=== PATIENT | male | born 1980 | race Caucasian/White ===

== ENCOUNTER 2022-06-05 13:41 | Emergency (ER) | payer MEDICAID, SELFPAY ==
--- NOTE | ~2022-06-05 | XR_ITS ---
EXAMINATION: XR KNEE-BILATERAL CLINICAL INFORMATION: Bilateral knee pain. COMPARISON: None TECHNIQUE: 2 views each of both knees were obtained. FINDINGS: Right knee: The bony alignments are intact. Decreased joint space, subchondral sclerosis, osteophyte formation, consistent with medial and lateral compartmental moderate osteoarthrosis. The patellofemoral compartment appears intact and is unremarkable. Left knee: Similar to the right site, moderate medial and lateral compartmental osteoarthrosis is seen. Patellofemoral compartment shows minimal osteoarthrosis and small suprapatellar effusion. XR/XR knee LT 2V IMPRESSION: 1. Small left-sided suprapatellar effusion and tricompartmental left-sided osteoarthrosis. 2. The right knee shows medial and lateral compartmental osteoarthrosis and no evidence of any effusion.
--- NOTE | ~2022-06-05 | XR_ITS ---
EXAMINATION: XR KNEE-BILATERAL CLINICAL INFORMATION: Bilateral knee pain. COMPARISON: None TECHNIQUE: 2 views each of both knees were obtained. FINDINGS: Right knee: The bony alignments are intact. Decreased joint space, subchondral sclerosis, osteophyte formation, consistent with medial and lateral compartmental moderate osteoarthrosis. The patellofemoral compartment appears intact and is unremarkable. Left knee: Similar to the right site, moderate medial and lateral compartmental osteoarthrosis is seen. Patellofemoral compartment shows minimal osteoarthrosis and small suprapatellar effusion. XR/XR knee RT 2V IMPRESSION: 1. Small left-sided suprapatellar effusion and tricompartmental left-sided osteoarthrosis. 2. The right knee shows medial and lateral compartmental osteoarthrosis and no evidence of any effusion.
[2022-06-05 13:57] VITALS: BP 124/68; PULSE 85; RESP 18; TEMP 36.6; O2SAT 94; BMI 46.3
--- NOTE | 2022-06-05 18:08 | ED_ITS ---
HPI - General Adult General Chief complaint: General Medical Stated complaint: knee pain Time Seen by Provider: 06/05/22 18:08 Source: patient Mode of arrival: ambulatory History of Present Illness HPI narrative: 42-year-old male with no significant past medical history presenting to the ED complaining of acute on chronic bilateral knee pain x years worsening over the past few weeks. Reports feels like it needs arm grinding, worse with movement, ambulating and any activity. Denies known injury/trauma or fall. Reports intermittent paresthesias. Denies fever, chills, weakness Onset (ago): year(s) Related Data Previous Rx's Medication Instructions Recorded acetaminophen 500 mg tablet 500 mg PO Q6H PRN fever or pain 06/05/22 (Tylenol Extra Strength) #14 tabs naproxen 500 mg tablet 500 mg PO BID PRN pain 10 days #20 06/05/22 tabs Allergies Allergy/AdvReac Type Severity Reaction Status Date / Time No Known Allergies Allergy Verified 06/05/22 13:56 Review of Systems Review of Systems: Constitutional: No Fever, No Chills ENT/Mouth: No Ear Pain, No Nasal Congestion, No sore throat, No Rhinorrhea, No Swallowing Difficulty Cardiovascular: No Chest Pain, No SOB Respiratory: No Cough, No Sputum, No Wheezing Gastrointestinal: No Nausea, No Vomiting, No Diarrhea, No Constipation, No Abdominal pain Genitourinary: No Dysuria, No Urinary Frequency, No Urgency, No Flank Pain Musculoskeletal: + joint pain, No Myalgias, + Joint Swelling Skin: No Skin Lesions, No rash Neuro: No Weakness, No Numbness, + Paresthesias Yes all other systems are reviewed and are negative Constitutional: Constitutional: Reports as per [facility] Past Medical History Attestation statement: The following information was validated with the patient. Physical Exam ED Vital Signs: Vital Signs - 24 hr 06/05/22 13:57 Temperature 97.8 F Pulse Rate 85 Respiratory Rate 18 Blood Pressure 124/68 Pulse Oximetry 94 Oxygen Delivery Method Room Air BMI result Body Mass Index 46.3 Const General: cooperative, healthy appearing and no acute distress Orientation/consciousness: patient oriented x3 Limitations: no limitations HENMT Head: Yes normal to inspection and Yes atraumatic Ears: hearing grossly normal bilaterally General nose exam: Normal external nose present Face and sinus: Yes normal facial exam Eyes General: appearance normal, both eyes and all related structures EOM: EOMs intact bilaterally Neck Neck: Yes normal visual inspection and Yes no meningeal signs Resp Effort & Inspection: normal respiratory effort and no respiratory distress Cardio Rate: regular rate Heart sounds: S1 normal heart sound present and S2 normal heart sound present Peripheral pulses: dorsalis pedis present Skin Rashes: no rashes Wounds: no wounds Neuro Other: Ambulating with slow steady gait General: patient oriented x3, gait normal, tone normal and no meningeal signs Gait exam (Neuro): Normal gait present Extrem Other: Bilateral knees with mild swelling > left. Diffusely tender to palpation. Decreased flexion bilaterally secondary to pain. Neurovascular intact distally. No overlying erythema/warmth or streaking. Course Course Course Narrative: XR knee RT 2V/XR knee LT 2V IMPRESSION: ? 1. Small left-sided suprapatellar effusion and tricompartmental left-sided osteoarthrosis. 2. The right knee shows medial and lateral compartmental osteoarthrosis and no evidence of any effusion. > Alexander wrap applied for comfort and stability. Results discussed with patient including worrisome signs and symptoms and strict return precautions, and when to return to the emergency department. They verbalized understanding and feel safe for discharge at this time. Medical Decision Making MDM Narrative Medical decision making narrative: 42-year-old male with no significant past medical history presenting to the ED complaining of acute on chronic bilateral knee pain x years worsening over the past few weeks. On exam vital signs stable, NAD, nontoxic appearing, physical exam as above. Concern for arthritis for low suspicion for fracture, septic joint/arthritis, no evidence of cellulitis Plan: X-rays Medical Records Medical records reviewed: Yes I reviewed the patient's medical records. Lab Data Lab results reviewed: Yes I reviewed the patient's lab results. Discharge Plan Discharge Clinical Impression: Osteoarthritis Patient Disposition: Home, Self-Care Instructions: Osteoarthritis (ED) Additional Instructions: Your x-ray show a small left-sided suprapatellar effusion and osteoarthritis bilaterally. Wear Alexander wraps for stability/compression and comfort. Naproxen as an anti-inflammatory/pain medication, take with food. In addition take Tylenol. You need to follow-up with orthopedics. Ice and elevate. Rest Prescriptions: New acetaminophen [Tylenol Extra Strength] 500 mg tablet 500 mg PO Q6H PRN (Reason: fever or pain) Qty: 14 0RF naproxen 500 mg tablet 500 mg PO BID PRN (Reason: pain) 10 Days Qty: 20 0RF Referrals: Red Cano MD [Physician] -
[2022-06-05] MEDS: Ketorolac Tromethamine 30 MG/ML VIAL IM (18:44)
== END 2022-06-05 18:50 | disposition home or self-care (01) ==
PROVIDERS: Emergency Provider Emergency Medicine; PCP Physician Assistant
DX: M17.0 Bilateral primary osteoarthritis of knee (principal); M25.462 Effusion, left knee
CPT/HCPCS: 73560; 96372; 99283; 99284; J1885

== ENCOUNTER 2022-07-07 12:50 | Outpatient (REF) | payer MEDICAID, SELFPAY ==
--- NOTE | ~2022-07-07 | XR_ITS ---
EXAMINATION: XR KNEE AP STANDING. XR KNEE, BILATERAL CLINICAL INFORMATION: Bilateral knee pain COMPARISON: 06/05/2022 TECHNIQUE: AP bilateral standing view of the knees was obtained. [place] views of each knee. FINDINGS: Tricompartmental osteoarthritis of both knees, most prominent in the medial compartments with marginal osteophytes and slight genu varus bilaterally. No acute abnormalities. No change. XR/XR knee standing BI IMPRESSION: Mild to moderate tricompartmental osteoarthritis. No change.
--- NOTE | ~2022-07-07 | XR_ITS ---
EXAMINATION: XR KNEE AP STANDING. XR KNEE, BILATERAL CLINICAL INFORMATION: Bilateral knee pain COMPARISON: 06/05/2022 TECHNIQUE: AP bilateral standing view of the knees was obtained. [place] views of each knee. FINDINGS: Tricompartmental osteoarthritis of both knees, most prominent in the medial compartments with marginal osteophytes and slight genu varus bilaterally. No acute abnormalities. No change. XR/XR knee RT 1V IMPRESSION: Mild to moderate tricompartmental osteoarthritis. No change.
--- NOTE | ~2022-07-07 | XR_ITS ---
EXAMINATION: XR KNEE AP STANDING. XR KNEE, BILATERAL CLINICAL INFORMATION: Bilateral knee pain COMPARISON: 06/05/2022 TECHNIQUE: AP bilateral standing view of the knees was obtained. [place] views of each knee. FINDINGS: Tricompartmental osteoarthritis of both knees, most prominent in the medial compartments with marginal osteophytes and slight genu varus bilaterally. No acute abnormalities. No change. XR/XR knee LT 1V IMPRESSION: Mild to moderate tricompartmental osteoarthritis. No change.
== END 2022-07-07 12:51 | disposition home or self-care (01) ==
LOC: HO.HOSX 12:50
PROVIDERS: Visit Provider Physician Assistant
DX: M17.0 Bilateral primary osteoarthritis of knee (principal)
CPT/HCPCS: 20610; 73560; 73565; 99202; J1020

== ENCOUNTER 2022-07-08 12:08 | Outpatient (REF) | payer MEDICAID, SELFPAY ==
--- NOTE | ~2022-07-08 | XR_ITS ---
EXAMINATION: XR SHOULDER, RIGHT XR SHOULDER, LEFT CLINICAL INFORMATION: M77.8 - Other enthesopathies, not elsewhere classified COMPARISON: None TECHNIQUE: Right shoulder is imaged in 4 views. Left shoulder is imaged in 4 views. There are a total of 8 views. FINDINGS: Right: No fracture, dislocation, destructive process. Glenohumeral joint appears normal. No joint narrowing or erosive change. The acromioclavicular alignment is normal. Borderline degenerative changes acromioclavicular joint. No visible rotator cuff calcifications. Left: No fracture, dislocation, destructive process. Glenohumeral joint appears normal. No joint narrowing or erosive change. The acromioclavicular alignment is normal. Borderline degenerative changes acromioclavicular joint. No visible rotator cuff calcifications. XR/XR shoulder LT min 2V IMPRESSION: -Borderline degenerative changes acromioclavicular joints. -Normal glenohumeral joints. -No visible rotator cuff calcifications.
--- NOTE | ~2022-07-08 | XR_ITS ---
EXAMINATION: XR SHOULDER, RIGHT XR SHOULDER, LEFT CLINICAL INFORMATION: M77.8 - Other enthesopathies, not elsewhere classified COMPARISON: None TECHNIQUE: Right shoulder is imaged in 4 views. Left shoulder is imaged in 4 views. There are a total of 8 views. FINDINGS: Right: No fracture, dislocation, destructive process. Glenohumeral joint appears normal. No joint narrowing or erosive change. The acromioclavicular alignment is normal. Borderline degenerative changes acromioclavicular joint. No visible rotator cuff calcifications. Left: No fracture, dislocation, destructive process. Glenohumeral joint appears normal. No joint narrowing or erosive change. The acromioclavicular alignment is normal. Borderline degenerative changes acromioclavicular joint. No visible rotator cuff calcifications. XR/XR shoulder RT min 2V IMPRESSION: -Borderline degenerative changes acromioclavicular joints. -Normal glenohumeral joints. -No visible rotator cuff calcifications.
[2022-07-08 13:24] LABS: Hematocrit 41.9 % (42.0-52.0); Hemoglobin 14.3 g/dl (14.0-18.0); Mean Corpuscular HGB Conc 34.1 g/dl (31.0-36.0); Mean Corpuscular Hemoglobin 27.8 pg (27.0-33.0); Mean Corpuscular Volume 81.5 fL (80.0-98.0); Mean Platelet Volume 10.5 fL (9.4-12.4); Platelet Count 230 X10*3/uL (160-400); Red Blood Count 5.14 X10*6/uL (4.60-5.80); Red Cell Distribution Width 13.3 % (11.0-16.0); White Blood Count 12.3 X10*3/uL (4.8-10.8)
[2022-07-08 14:07] LABS: Alanine Aminotransferase 18 U/L (0-40); Albumin Level 3.9 g/dL (3.5-5.0); Alkaline Phosphatase 72 U/L (39-117); Anion Gap 13 (12-20); Aspartate Amino Transferase 13 U/L (5-37); Bilirubin Total 0.4 mg/dL (0.0-1.0); Blood Urea Nitrogen 8 mg/dL (9-16); Calcium 9.2 mg/dL (8.4-10.2); Carbon Dioxide 28 mmol/L (22-29); Chloride 102 mmol/L (96-108); Cholesterol 200 mg/dL; Estimated Glomerular Filt Rate > 60; Glucose Fasting 88 mg/dL (60-99); HDL Cholesterol 45 mg/dL; LDL Cholesterol Calculated 132 mg/dl; Potassium 4.3 mmol/L (3.3-5.1); Sodium 139 mmol/L (135-145); Triglycerides 119 mg/dL
[2022-07-08 14:40] LABS: TSH reflex Free T4 0.82 uIU/mL (0.32-4.0)
== END 2022-07-08 12:09 | disposition home or self-care (01) ==
LOC: HO.XRAY 12:08
PROVIDERS: PCP Physician Assistant; Visit Provider Physician Assistant
DX: Z13.29 Encounter for screening for other suspected endocrine disorder (principal); F17.200 Nicotine dependence, unspecified, uncomplicated
CPT/HCPCS: 36415; 73030; 80053; 80061; 84443; 85027

== ENCOUNTER → 2022-10-09 12:54 | Outpatient (BNVA) | payer MEDICAID, SELFPAY | PROVIDERS: PCP Physician Assistant; Visit Provider Physician Assistant | DX: M17.0 Bilateral primary osteoarthritis of knee (principal) | CPT/HCPCS: 20610; 99212; J1040 ==

== ENCOUNTER → 2023-02-20 10:01 | Outpatient (BNVA) | payer MEDICAID, SELFPAY | PROVIDERS: PCP Physician Assistant; Visit Provider Physician Assistant | DX: M17.0 Bilateral primary osteoarthritis of knee (principal) | CPT/HCPCS: 20610; 99212; J1040 ==

== ENCOUNTER → 2023-03-23 13:32 | Outpatient (BNVA) | payer OTHER, SELFPAY | PROVIDERS: PCP Physician Assistant; Visit Provider Anesthesiology | DX: G90.522 Complex regional pain syndrome I of left lower limb (principal); M17.0 Bilateral primary osteoarthritis of knee; G89.4 Chronic pain syndrome | CPT/HCPCS: 99202 ==

== ENCOUNTER 2023-04-07 06:15 | Outpatient (REF) | payer OTHER, SELFPAY ==
--- NOTE | ~2023-04-07 | FL_ITS ---
EXAMINATION: XR FLUOROSCOPY WITH IMAGES CLINICAL INFORMATION: Bilateral primary osteoarthritis of knee. COMPARISON: None available. TECHNIQUE: Fluoroscopy Supervised By: Dr. Ramirez. Fluoroscopy Time: 0.0 minutes. Cumulative Dose: 0.538 mGy. DAP: 0.146 Gycm2. Images: 2. FINDINGS: Lateral image demonstrates needle projecting over the left proximal tibia. FL/FL guidance in treatment room IMPRESSION: Fluoroscopy guidance for pain management procedure
== END 2023-04-07 06:16 | disposition home or self-care (01) ==
LOC: CF 06:15
PROVIDERS: Visit Provider Anesthesiology
DX: M17.0 Bilateral primary osteoarthritis of knee (principal); G89.4 Chronic pain syndrome; G90.522 Complex regional pain syndrome I of left lower limb
CPT/HCPCS: 64450

== ENCOUNTER → 2023-04-09 10:40 | Outpatient (BNVA) | payer OTHER, SELFPAY | PROVIDERS: PCP Physician Assistant; Visit Provider Anesthesiology | DX: G89.4 Chronic pain syndrome (principal); M17.0 Bilateral primary osteoarthritis of knee; G90.522 Complex regional pain syndrome I of left lower limb | CPT/HCPCS: 99212 ==

== ENCOUNTER 2023-04-24 13:20 | Outpatient (REF) | payer OTHER, SELFPAY ==
[2023-04-24 14:28] LABS: Alanine Aminotransferase 29 U/L (0-40); Albumin Level 4.1 g/dL (3.5-5.0); Alkaline Phosphatase 64 U/L (39-117); Anion Gap 13 (12-20); Aspartate Amino Transferase 15 U/L (5-37); Bilirubin Total 0.3 mg/dL (0.0-1.0); Blood Urea Nitrogen 13 mg/dL (9-16); Calcium 9.5 mg/dL (8.4-10.2); Carbon Dioxide 28 mmol/L (22-29); Chloride 105 mmol/L (96-108); Cholesterol 188 mg/dL; Estimated Glomerular Filt Rate > 60; Glucose Fasting 118 mg/dL (60-99); HDL Cholesterol 43 mg/dL; LDL Cholesterol Calculated 87 mg/dl; Potassium 3.9 mmol/L (3.3-5.1); Sodium 142 mmol/L (135-145); Total Protein 7.4 g/dL (6.5-8.0); Triglycerides 294 mg/dL
== END 2023-04-24 13:21 | disposition home or self-care (01) ==
LOC: HO.LAB 13:20
PROVIDERS: PCP Physician Assistant; Visit Provider Physician Assistant
DX: E78.9 Disorder of lipoprotein metabolism, unspecified (principal); Z13.1 Encounter for screening for diabetes mellitus
CPT/HCPCS: 36415; 80053; 80061; 85027

== ENCOUNTER → 2023-05-05 09:22 | Outpatient (REF) | payer OTHER, SELFPAY ==
--- NOTE | 2023-05-05 09:24 | CA_ITS ---
Acquisition Time: 2023-05-05 09:40:35 Total Exercise Time: 00:06:51 Test Indications: CHEST PAIN Medications: ARIPIPRAZOLE CLONAZAPAM LORATADINE VARENICLINE Protocol: NAN Max HR: 150 BPM 85% of Pred: 176 BPM Max BP: 158/068 mmHG Max Work Load: 8.3 METS Exercise stress test exercise 6 min 51 sec of Nan protocol achieivng 85% MPHR, pt jumped off treadmil due to 7/10 chest discomfort, mild SOB, at 2 min 3/10 sharp chest pain, decreased to 2 at 3 min, 1/10 at 4 min, 0/10 5.5 min, 7/10 at 6 min 45 sec, without arrhythmias, with normotensive response to exercise, without EKG changes. Chest pain decreased to 2/10 at 4.5 mins of recovery. Test reviewed with Dr. Marshall. Referred By: Ricky Kern Overread By: Kiet Marshall
== END ==
LOC: HO.CARD 09:22
PROVIDERS: PCP Physician Assistant; Visit Provider Physician Assistant
DX: R07.9 Chest pain, unspecified (principal)
CPT/HCPCS: 93017

== ENCOUNTER → 2023-05-05 09:24 | Outpatient (BNV) | payer OTHER, SELFPAY | PROVIDERS: PCP Physician Assistant; Visit Provider Internal Medicine Cardiovascular Disease | DX: R07.89 Other chest pain (principal); R06.02 Shortness of breath | CPT/HCPCS: 93016; 93018 ==

== ENCOUNTER → 2023-06-02 08:52 | Outpatient (REF) | payer OTHER, SELFPAY | LOC: HO.SL 08:52 | PROVIDERS: PCP Physician Assistant; Visit Provider Physician Assistant | DX: G47.33 Obstructive sleep apnea (adult) (pediatric) (principal) | CPT/HCPCS: 95806 ==

== ENCOUNTER → 2023-06-02 09:00 | Outpatient (BNV) | payer OTHER, SELFPAY | PROVIDERS: PCP Physician Assistant; Visit Provider Internal Medicine | DX: G47.33 Obstructive sleep apnea (adult) (pediatric) (principal) | CPT/HCPCS: 95806 ==

== ENCOUNTER 2023-07-16 14:20 | Outpatient (AMB) | payer OTHER, SELFPAY ==
--- NOTE | 2023-07-16 14:29 | MHC.OFFVIS ---
Intake Vital Signs 07/16/23 14:30 Height 5 ft 10 in Weight 299 lb BMI 42.9 BP 122/60 Blood Pressure Location Lt brachial Position Sitting Pulse 95 Pulse Source Pulse Oximeter Pulse Oximetry (%) 98 Oxygen Delivery Method Room Air Intake Visit Reasons: curly Intake Note: pt is here for sleep study explanation, cpap is ordered at [facility] by pcp, waiting for order to be complete Allergies No Known Allergies Allergy (Verified 07/16/23 15:05) Medication List - Last Reconciled 07/16/23 by Celso Jacome MD acetaminophen (Tylenol Extra Strength) 500 mg PO Q6H 15 days aripiprazole 10 mg PO BEDTIME clonazepam (Klonopin) 1 mg PO BEDTIME compr.stocking,knee,long,x-lrg As directed CPAP (CPAP Machine/Device) Please include ALL SUPPLIES diclofenac sodium 75 mg PO BID PRN loratadine 10 mg PO DAILY PRN nicotine (polacrilex) 2 mg buccal Q2H PRN 15 days Do you need a note to return to daycare/school/sports/work: No HPI curly HPI Details This [age] years gentleman is here for the 1st time, referred for management of his sleep apnea. He has history of morbid obesity for the past many years. Has history of loud snoring and frequent awakenings since about six to eight years ago. 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 His symptoms include loud snoring, frequent respiratory pauses, frequent awakening. And continued daytime sleepiness. He has very little control on his d He smokes one to one and half pack of cigarettes a day. Denies chronic cough or wheezing. He has bipolar disorder and is difficult for him to focus on smoking cessation. Lately he has had painful knees has had. He denies any symptoms of bronchial asthma or COPD. His PCP, Omi Kern , had ordered home-based sleep study which was done on 06/02/2023. As expected the study was grossly abnormal, showing severe obstructive sleep apnea with total sleep time AHI is 60.6, all the sleep was in supine position. He also had associated nocturnal hypoxemia with minimal O2 sat of 59 and O2 sat below 88% for 117 minute, This indicates that he has significant sleep-related hypoventilation. Normally he should have CPAP titration in the sleep lab. But because of urgency of starting him on the treatment, neck felt in has already ordered a CPAP for him. DME provider, Wily , has not processes at the order yet because of lack of some documents which we are going to take care of. [facility] Medical History (Updated 07/16/23 @ 15:21 by Celso Jacome MD) Nocturnal hypoxemia Morbid obesity CURLY (obstructive sleep apnea) Lumbar disc disease Obese Surgical History History of back surgery Family History Paternal Grandmother Mental health disorder Cancer Paternal Uncle Cancer Maternal Uncle Cancer Other Substance use disorder Social History Housing: House Alcohol intake: former Year quit: 2019 Patient Tobacco Use Status: Current everyday Tobacco user Cigarettes Per Day: 10 e-Cigarette/Vaping Use: Never Used service: No Current occupational status: disabled Current occupation: On SSI. Having difficulties with them currently. Current occupational exposures/hazards: No Cognitive needs: No Hearing needs: No Vision needs: No Review of Systems Const All systems reviewed & are unremarkable except as noted in HPI and below Eyes Reports no additional complaints ENT Reports no additional complaints Card Denies chest pain, Denies irregular heart rhythm, Denies leg edema and Denies dyspnea Resp Denies cough, Denies dyspnea and Denies wheezing GI Reports no additional complaints Reports no additional complaints Musc Reports arthralgias (Knees, getting intra-articular steroid injections) Skin/Breast Reports system reviewed and no additional complaints, except as documented Neuro Reports no additional complaints Psych Reports anxiety and Reports other (Being treated for bipolar disorder) Endo Reports no additional complaints Toni/Lymph Reports no additional complaints Aller/Immun Reports no additional complaints and Denies wheezing Physical Exam Vital Signs: Last Vital Signs Pulse 95 07/16/23 14:30 BP 122/60 07/16/23 14:30 Pulse Ox 98 07/16/23 14:30 Oxygen Delivery Method Room Air 07/16/23 14:30 BMI result Body Mass Index 42.9 Const Other: HE IS GROSSLY OBESE, WITH A ROUND FACE, LARGE NECK, AND ALSO HAS PROMINENT RETROGANTHIA OF THE LOWER JAW General: comfortable, no acute distress, alert and awake Orientation/consciousness: patient oriented x3 HEENT Head: Yes normal to inspection General nose exam: No nasal polyps present and No nasal discharge present Face and sinus: Yes sinuses nontender Mouth: oropharynx abnormals (OROPHARYNX IS VERY NARROW AND CROWDED, MALLAMPATI CLASS 4) Teeth and gingiva: other (RETROGANTHIA OF LOWER JAW) Throat: Yes posterior oropharynx normal Eyes General: appearance normal, both eyes and all related structures Neck Neck: Yes normal visual inspection, Yes no lymphadenopathy, Yes trachea midline, Yes no JVD and Yes other (NECK CIRCUMFERENCE 20 IN) Thyroid: Thyroid normal Chest Chest palpation & inspection: normal inspection of the chest, normal palpation of entire chest wall and no tenderness Resp Other: PERCUSSION NOTE HARDLY PERCEPTIBLE BECAUSE. OF THE THICK CHEST WALL BREATH SOUNDS ARE DISTANT. BUT NO CREPITATIONS WHEEZES OR RHONCHI ARE HEARD. Cardio Palpation: PMI not normal (NOT PALPABLE) Rate: regular rate Rhythm: regular rhythm Heart sounds: no gallops and no murmurs Peripheral pulses: Peripheral pulses 2+ throughout GI Palpation (GI): Soft to palpation, nontender, No hepatosplenomegaly present, no masses and Other GI palpation findings present (ABDOMEN IS OBESE AND PROTUBERANT) Auscultation: normal bowel sounds Back/Spine/Pelvis Thoracic/Lumbar Spine: thoracic and lumbar spine normal to inspection Skin General skin exam: no rashes or lesions noted Neuro General: patient oriented x3 and no focal motor deficits Cranial nerves: Yes CN's II-XII intact bilaterally Extrem General: Yes normal to inspection, Yes no clubbing, cyanosis or edema and Yes no calf tenderness Psych Appearance: grossly normal and well kempt Speech and movement: Normal speech and movement present Results Reviewed Results Reviewed: I reviewed the results of his home-based sleep study with him and his . Findings consistent with very severe obstructive sleep apnea. Total sleep time AHI 60.6, all the sleep in supine position. Nocturnal hypoxemia with O2 sat below eighty eight hundred seventeen minutes Assessment & Plan Assessment & Plan (1) Morbid obesity: Comment: BMI=42.9 HE IS MORBIDLY OBESE, DIET EXPLAINED, HE IS NOT ABLE TO DO MUCH EXERCISE AT THIS TIME. Code(s): E66.01 - Morbid (severe) obesity due to excess calories (2) CURLY (obstructive sleep apnea): Comment: VERY SEVERE OBSTRUCTIVE SLEEP APNEA, WITH NOCTURNAL HYPOXEMIA. MORBID OBESITY AND PRESENCE OF RETROGANTHIA OR THE CAUSE OF HIS SEVERE CURLY. HAD A GOOD DETAILED DISCUSSION WITH HIM AND HIS . TOLD HIM THAT HE NEEDS TO BE STARTED ON CPAP THERAPY VERY URGENTLY. DOES SEVERE GOING TO PURSUE WITH THE [facility] TO PROVIDE HIM CPAP SOON POSSIBLE. ONCE HE IS USING THE CPAP, WE WOULD DO OVERNIGHT OXIMETRY RECORDING TO MAKE SURE THAT HYPOXEMIA. IS CORRECTED IF THIS DOES NOT WORK OUT WELL THEN HE NEEDS TO BE BROUGHT INTO THE SLEEP LAB FOR CPAP TITRATION. Code(s): G47.33 - Obstructive sleep apnea (adult) (pediatric) (3) Nocturnal hypoxemia: Comment: NOCTURNAL HYPOXEMIA SECONDARY TO SEVERE CURLY AND SLEEP-RELATED HYPOVENTILATION. HOPEFULLY THIS WILL BE CORRECTED BY USE OF CPAP. Code(s): G47.34 - Idiopathic sleep related nonobstructive alveolar hypoventilation (4) Tobacco dependence: Comment: HE IS A HARD CORE SMOKER. HAD A GOOD DISCUSSION WITH HIM, HE NEEDS TO QUIT SMOKING, CURRENTLY USING NICOTINE BUCKLE LOZENGES . Code(s): F17.200 - Nicotine dependence, unspecified, uncomplicated Medications: Changed From diclofenac sodium 75 mg PO BID 30 days 60 tabs 1RF M17.12 - Unilateral primary osteoarthritis, left knee To diclofenac sodium 75 mg PO BID PRN M17.12 - Unilateral primary osteoarthritis, left knee From loratadine 10 mg PO DAILY 90 days 90 tabs 1RF J30.1 - Allergic rhinitis due to pollen To loratadine 10 mg PO DAILY PRN J30.1 - Allergic rhinitis due to pollen Coding Level of Care Code New Pt Level 4 (91674) Diagnoses Morbid obesity E66.01 CURLY (obstructive sleep apnea) G47.33 Nocturnal hypoxemia G47.34 Tobacco dependence F17.200
[2023-07-16 14:30] VITALS: BP 122/60; PULSE 95; O2SAT 98; BMI 42.9
== END 2023-07-16 15:03 | disposition home or self-care (01) ==
PROVIDERS: PCP Physician Assistant; Visit Provider Internal Medicine
DX: G47.33 Obstructive sleep apnea (adult) (pediatric) (principal); G47.34 Idiopathic sleep related nonobstructive alveolar hypoventilation; F17.210 Nicotine dependence, cigarettes, uncomplicated; E66.01 Morbid (severe) obesity due to excess calories
CPT/HCPCS: 99214

== ENCOUNTER → 2023-07-16 14:20 | Outpatient (BNVA) | payer OTHER, SELFPAY | PROVIDERS: PCP Physician Assistant; Visit Provider Internal Medicine | DX: G47.33 Obstructive sleep apnea (adult) (pediatric) (principal); G47.34 Idiopathic sleep related nonobstructive alveolar hypoventilation; E66.01 Morbid (severe) obesity due to excess calories; Z68.41 Body mass index [BMI] 40.0-44.9, adult; F17.200 Nicotine dependence, unspecified, uncomplicated | CPT/HCPCS: 99212 ==

== ENCOUNTER 2023-08-28 20:09 | Emergency (ER) | payer OTHER, SELFPAY ==
[2023-08-28 20:47] VITALS: BP 138/81; PULSE 90; RESP 16; TEMP 36.5; O2SAT 95; BMI 44.3
--- NOTE | 2023-08-28 22:00 | ED_ITS ---
HPI - Extremity Problem General Chief complaint: Extremity Injury, Upper Stated complaint: Left Shoulder & Elbow Pain Time Seen by Provider: 08/28/23 21:40 Source: patient Mode of arrival: ambulatory Limitations: no limitations History of Present Illness HPI Narrative: 43 yo male with hx of what he states is RA but not on medications and managed by orthopedics with steroid injections due again this month and in september, HLD, not a diabetic, MDD here with c/o both shoulders hurting and L elbow pain likely exacerbated after attempting to do yard work. He denies fevers, redness. He has never seen a frozen food selector. MD Complaint: joint swelling and joint pain Onset (ago): day(s) (few) Pain Consistency: constant Location: left, upper extremity and elbow Quality: aching and constant Radiation: none Relieving factors: rest Exacerbating factors: range of motion and palpation Associated symptoms: denies other symptoms Context: other (hx of same) Related Data Home Medications Medication Instructions Recorded Confirmed clonazepam 1 mg tablet (Klonopin) 1 mg PO BEDTIME 02/20/23 07/16/23 aripiprazole 10 mg tablet 10 mg PO BEDTIME 04/09/23 07/16/23 diclofenac sodium 75 mg 75 mg PO BID PRN 07/16/23 07/16/23 tablet,delayed release loratadine 10 mg tablet 10 mg PO DAILY PRN 07/16/23 07/16/23 Previous Rx's Medication Instructions Recorded acetaminophen 500 mg tablet 500 mg PO Q6H fever or pain 15 07/01/22 (Tylenol Extra Strength) days #60 tabs compr.stocking,knee,long,x-lrg #2 ea 07/01/22 nicotine (polacrilex) 2 mg gum 2 mg buccal Q2H PRN nicotine 04/09/23 cravings 15 days #110 ea CPAP (CPAP Machine/Device) #1 ea 06/16/23 lidocaine 5 % topical patch 1 patch topical DAILY #30 ea 08/28/23 morphine 15 mg immediate release 15 mg PO Q6H PRN pain #12 tabs 08/28/23 tablet prednisone 20 mg tablet 40 mg (2 x 20 mg) PO DAILY 5 days 08/28/23 #10 tabs Allergies Allergy/AdvReac Type Severity Reaction Status Date / Time No Known Allergies Allergy Verified 07/16/23 15:05 Review of Systems Review of Systems: Constitutional : No Fever, No Chills ENT/Mouth : No Ear Pain, No Hoarseness, No sore throat Eyes: No Eye Pain, No Swelling, No Redness, No Foreign Body Cardiovascular : No Chest Pain, No SOB Respiratory : No Cough, No Dyspnea Gastrointestinal : No Nausea, No Vomiting, No Diarrhea, No abdominal Pain Genitourinary : No Dysuria, No Hematuria Musculoskeletal : positive joint pain, No Myalgias, pos Joint Swelling Skin : No Skin lacerations, No rash Neuro : No Weakness, No Numbness, No Loss of Consciousness, No Dizziness, No Headache Psych : No Anxiety/Panic, No Depression Heme/Lymph: no easy bruising, no Lymphadenopathy Endocrine : No Polyuria, No Polydipsia All other systems reviewed and are negative PMFSH Past Medical History Attestation statement: The following information was validated with the patient. Source: old records reviewed Medical History Nocturnal hypoxemia Morbid obesity CURLY (obstructive sleep apnea) Lumbar disc disease Obese Surgical History History of back surgery Family History Family History Paternal Grandmother Mental health disorder Cancer Paternal Uncle Cancer Maternal Uncle Cancer Other Substance use disorder Social History Social History Housing: House Alcohol intake: former Year quit: 2019 Patient Tobacco Use Status: Current everyday Tobacco user Cigarettes Per Day: 10 e-Cigarette/Vaping Use: Never Used Advance Directives: No Advance Directives Information Provided: No service: No Current occupational status: disabled Current occupation: On SSI. Having difficulties with them currently. Current occupational exposures/hazards: No Cognitive needs: No Hearing needs: No Vision needs: No Physical Exam Vital Signs: Vital Signs: Last Vital Signs Temp 97.7 F 08/28/23 20:47 Pulse 90 08/28/23 20:47 Resp 16 08/28/23 20:47 BP 138/81 08/28/23 20:47 Pulse Ox 95 08/28/23 20:47 O2 Del Method Room Air 08/28/23 20:47 BMI result Body Mass Index 44.3 Appearance: Alert. Oriented X3. No acute distress. Eyes: Pupils equal, round and reactive to light. ENT: Pharynx normal. Neck: Normal inspection. Neck supple. CVS: Normal heart rate and rhythm. Pulses normal. Respiratory: No respiratory distress. Breath sounds normal. Abdomen: Soft and nontender. Skin: Skin warm and dry. Normal skin color. Normal skin turgor. Extremities: No lower extremity edema. R and L shoulders ttp, L elbow ttp but distal NV intact no warmth, erythema no effusions felt Neuro: Oriented X 3. No motor deficit. No sensory deficit. Medications Administered Discontinued Medications Generic Name Dose Route Start Last Admin Trade Name Freq PRN Reason Stop Dose Admin Morphine Sulfate 15 mg 08/28/23 22:02 08/28/23 22:08 Morphine Sulfate Immed Release 15 Mg Tablet PO 08/28/23 22:03 15 mg ONCE ONE Administration Medical Decision Making Medical Decision Making [facility] Narrative: 43 yo male with hx of what he states is RA but not on medications and managed by orthopedics with steroid injections due again this month and in september, HLD, not a diabetic, MDD here with shoulder and elbow pain after attempting to rake leaves - NV intact no signs of infection at this time will start on PRN pain medications and steroids. Unsure about RA but he states he has RA will give him rheum number. Differential Diagnosis Differential Diagnoses: The differential diagnosis associated with the presentation includes arthralgia, strain Lab Data [facility] Lab Attestation statement: I reviewed the patient's lab results. Independent Historian Clinical information obtained from an independent historian. History obtained from or confirmed by: Spouse External Record Review External record reviewed: Inpatient record Prescription Management I considered prescription management with: Pain Medication and Other Discharge Plan Discharge Clinical Impression: Polyarthralgia Patient Disposition: Home, Self-Care Instructions: Arthralgia (ED) Additional Instructions: return for worsening pain, fevers, redness, or any signs of infection [facility] [address] [place] [address] [address], [place] [id number] Prescriptions: New prednisone 20 mg tablet 40 mg PO DAILY 5 Days Qty: 10 0RF lidocaine 5 % adhesive patch,medicated 1 patch topical DAILY Qty: 30 0RF Rx Instructions: leave on most painful area for up to 12 hrs morphine 15 mg tablet 15 mg PO Q6H PRN (Reason: pain) Qty: 12 0RF Rx Instructions: partial fill okay; Partial Fill upon patient request. No Action (DME) CPAP Machine/Device Device See Rx Instructions .Route Qty: 1 0RF Rx Instructions: Please include ALL SUPPLIES acetaminophen [Tylenol Extra Strength] 500 mg tablet 500 mg PO Q6H 15 Days Qty: 60 1RF (DME) compr.stocking,knee,long,x-lrg Misc See Rx Instructions .Route Qty: 2 0RF Rx Instructions: As directed aripiprazole 10 mg tablet 10 mg PO BEDTIME nicotine (polacrilex) 2 mg gum 2 mg buccal Q2H PRN (Reason: nicotine cravings) 15 Days Qty: 110 1RF diclofenac sodium 75 mg tablet,delayed release (DR/EC) 75 mg PO BID PRN loratadine 10 mg tablet 10 mg PO DAILY PRN clonazepam [Klonopin] 1 mg tablet 1 mg PO BEDTIME Rx Instructions: administer 30 minutes before bedtime Interventions: ED Discharge Assessment Last Done: 08/28/23 22:12 Discharge Date/Time: 08/28/23 22:12
[2023-08-28] MEDS: Morphine Sulfate Immed Release 15 MG TABLET PO (22:08)
--- NOTE | 2023-08-28 22:11 | PC.NURSE ---
pt medicated per LISET- pt d/c'd with family member
== END 2023-08-28 22:12 | disposition home or self-care (01) ==
PROVIDERS: Emergency Provider Emergency Medicine; PCP Physician Assistant
DX: M25.511 Pain in right shoulder (principal); M25.512 Pain in left shoulder; Z79.899 Other long term (current) drug therapy
CPT/HCPCS: 99283

== ENCOUNTER 2023-09-16 10:41 | Outpatient (AMB) | payer OTHER, SELFPAY ==
--- NOTE | 2023-09-16 10:44 | A.OFFVIS_ITS ---
Intake Vital Signs 09/16/23 10:45 Height 5 ft 9 in Weight 300 lb BMI 44.3 Intake Visit Reasons: OV - bilateral knee injections - last 02-20-23 Intake Note: Yunior is a 42 year old male who presents today for a follow up of bilateral knee, last injection 02/20/23. Patient reports injection provided him relief for about 1.5 to 2 months of relief. He would like to repeat injections. Allergies No Known Allergies Allergy (Verified 09/16/23 10:51) HPI OV - bilateral knee injections - last 02-20-23 HPI Details 43-year-old male who returns to the [facility] today for a follow-up of bilateral knee pain. He states he has pain in his left as well as right knee. He had his last injection on 02/20/23 which provided him relief for about 2 months. He would like to repeat the injections. [facility] Medical History Nocturnal hypoxemia Morbid obesity CURLY (obstructive sleep apnea) Lumbar disc disease Obese Surgical History History of back surgery Family History Paternal Grandmother Mental health disorder Cancer Paternal Uncle Cancer Maternal Uncle Cancer Other Substance use disorder Social History Housing: House Alcohol intake: former Year quit: 2019 Patient Tobacco Use Status: Current everyday Tobacco user Cigarettes Per Day: 10 e-Cigarette/Vaping Use: Never Used service: No Current occupational status: disabled Current occupation: On SSI. Having difficulties with them currently. Current occupational exposures/hazards: No Cognitive needs: No Hearing needs: No Vision needs: No Review of Systems Const All systems reviewed & are unremarkable except as noted in HPI and below Physical Exam Vital Signs: BMI result Body Mass Index 44.3 Const General: cooperative and no acute distress Orientation/consciousness: patient oriented x3 Resp Effort & Inspection: normal respiratory effort and able to speak in complete sentences Cardio Peripheral pulses: Peripheral pulses 2+ throughout Neuro General: patient oriented x3 Extrem Other: Bilateral knees: Skin intact, no erythema or joint effusion. Significant tenderness along the medial joint line right worse than left. ROM full with crepitus. Negative steinmans. No ligamentous laxity. NVI. Office Procedures Joint Injection/Drain Joint Injection/Drain Primary Site: right knee Secondary Site: left knee Prep: site was prepped using aseptic technique, ethochloride spray was applied and injection warnings given Injected: 80 mg of, DepoMedrol, with 8 mL of, 1% plain lidocaine and in the joint Approach Used: anterolateral Procedure: The patient tolerated the procedure well and there was some relief with the local anesthesia Coding 39110 - Glenohumeral/Tronchanteric Bursa/Intraarticular Procedure code (CPT) selection complete Assessment & Plan Assessment & Plan (1) Osteoarthritis of knees, bilateral: Code(s): M17.0 - Bilateral primary osteoarthritis of knee Qualifiers: Osteoarthritis type: primary Qualified Code(s): M17.0 - Bilateral primary osteoarthritis of knee Plan We discussed options today which include steroid injection. They did consent to move forward with the bilateral knee injection, which was tolerated well. I recommended rest, ice and elevation and OTC anti-inflammatories PRN for discomfort. If symptoms persist or worsens over the next 6-8 weeks, patient will contact the office, otherwise follow-up as needed. Patient Instructions: Scribed for Anamika Judge PA-C, by Camilo Candelaria spanish medical interpreter, on 09/16/2023 at 10:45 AM GELACIO. Anamika Bradshaw PA-C, have personally reviewed and agree with the information entered by the scribe. Coding Level of Care Code Est Pt Level 3 (55760) Diagnoses Primary osteoarthritis of both knees M17.0 Osteoarthritis type: primary CPT Codes Coding - Joint 7: 13339 - Glenohumeral/Tronchanteric Bursa/Intraarticular ([id number])
[2023-09-16 10:45] VITALS: BMI 44.3
== END 2023-09-16 11:23 | disposition home or self-care (01) ==
PROVIDERS: PCP Physician Assistant; Visit Provider Physician Assistant
DX: M17.0 Bilateral primary osteoarthritis of knee (principal)
CPT/HCPCS: 20610; 99213

== ENCOUNTER → 2023-09-16 10:41 | Outpatient (BNVA) | payer OTHER, SELFPAY | PROVIDERS: PCP Physician Assistant; Visit Provider Physician Assistant | DX: M17.0 Bilateral primary osteoarthritis of knee (principal) | CPT/HCPCS: 20610; 99212; J1040 ==

== ENCOUNTER 2023-09-21 11:10 | Outpatient (AMB) | payer OTHER, SELFPAY ==
--- NOTE | 2023-09-21 11:11 | A.OFFVIS_ITS ---
Intake Intake Visit Reasons: New Prob - Bilateral Shoulder Pain Intake Note: Yunior a 43 year old male presents today for an evaluation of bilateral shoulder. States his right shoulder is worse at the moment. Reports he is limited ROM mostly in the AM. Patient reports history of shoulder injections years ago with his PCP that would provide him relief. He is requesting to repeat injection today. Allergies No Known Allergies Allergy (Verified 09/21/23 11:15) HPI New Prob - Bilateral Shoulder Pain HPI Details 43-year-old male who presents to the [facility] today for evaluation of bilateral shoulder pain. He states he has worsening pain in his bilateral shoulders which is worse on his right shoulder. He also c/o limited ROM in his shoulders during the mornings. He had bilateral shoulder injection in the past by his PCP which provided him relief for 3 years. He would like to repeat the injection. [facility] Medical History Nocturnal hypoxemia Morbid obesity CURLY (obstructive sleep apnea) Lumbar disc disease Obese Surgical History (Reviewed 09/16/23 @ 10:51 by Emily Villa [facility]) History of back surgery Family History Paternal Grandmother Mental health disorder Cancer Paternal Uncle Cancer Maternal Uncle Cancer Other Substance use disorder Social History Housing: House Alcohol intake: former Year quit: 2019 Patient Tobacco Use Status: Current everyday Tobacco user Cigarettes Per Day: 10 e-Cigarette/Vaping Use: Never Used service: No Current occupational status: disabled Current occupation: On SSI. Having difficulties with them currently. Current occupational exposures/hazards: No Cognitive needs: No Hearing needs: No Vision needs: No Review of Systems Const All systems reviewed & are unremarkable except as noted in HPI and below Physical Exam Extrem Other: Bilateral shoulder normal to inspection. Tenderness over the bicipital groove and along the deltoid region of the shoulder. Forward flexion to 175, external rotation to 90, internal rotation to S1. 5/5 RTC strength. Positive Oconnell. NVI. Office Procedures Joint Injection/Drain Joint Injection/Drain Primary Site: right shoulder Secondary Site: left shoulder Prep: site was prepped using aseptic technique, ethochloride spray was applied and injection warnings given Injected: 80 mg of, DepoMedrol, with 8 mL of, 1% plain lidocaine and in the subcromial space Approach Used: posterolateral Procedure: The patient tolerated the procedure well and there was some relief with the local anesthesia Coding 76185 - Glenohumeral/Tronchanteric Bursa/Intraarticular Procedure code (CPT) selection complete Results Reviewed Results Reviewed: xrays of both shoulders from 06/2022 how type 2 acromion Assessment & Plan Assessment & Plan (1) Impingement of both shoulders: Code(s): M25.811 - Other specified joint disorders, right shoulder; M25.812 - Other specified joint disorders, left shoulder Plan We discussed options today which include steroid injection. They did consent to move forward with the bilateral shoulder injection, which was tolerated well. I recommended rest, ice and elevation and OTC anti-inflammatories PRN for discomfort. If symptoms persist or worsens over the next 6-8 weeks, patient will contact the office, otherwise follow-up as needed. Patient Instructions: Scribed for Anamika Judge PA-C, by Camilo Candelaria director medical economics, on 09/21/2023 at 11:15 AM GELACIO. Augustine, Anamika Judge PA-C, have personally reviewed and agree with the information entered by the scribe. Coding Level of Care Code Est Pt Level 3 (37355) Diagnoses Impingement of both shoulders M25.811; M25.812 CPT Codes Coding - Joint 7: 57577 - Glenohumeral/Tronchanteric Bursa/Intraarticular ([id number])
== END 2023-09-21 12:04 | disposition home or self-care (01) ==
PROVIDERS: PCP Physician Assistant; Visit Provider Physician Assistant
DX: M25.811 Other specified joint disorders, right shoulder (principal); M25.812 Other specified joint disorders, left shoulder
CPT/HCPCS: 20610; 99213

== ENCOUNTER → 2023-09-21 11:10 | Outpatient (BNVA) | payer OTHER, SELFPAY | PROVIDERS: PCP Physician Assistant; Visit Provider Physician Assistant | DX: M25.811 Other specified joint disorders, right shoulder (principal); M25.812 Other specified joint disorders, left shoulder | CPT/HCPCS: 20610; 99212; J1040 ==

== ENCOUNTER 2023-09-28 13:52 | Outpatient (AMB) | payer OTHER, SELFPAY ==
--- NOTE | 2023-09-28 14:16 | A.OFFVIS_ITS ---
Intake Vital Signs 09/28/23 14:18 Height 5 ft 9 in Weight 307 lb 8.717 oz BMI 45.4 BP 120/64 Blood Pressure Location Lt brachial Position Sitting Pulse 76 Pulse Source Pulse Oximeter Pulse Oximetry (%) 98 Oxygen Delivery Method Room Air Intake Visit Reasons: Obstructive sleep apnea Intake Note: pt is here for follow up of starting cpap and is doing well, waking up refreshed and more energy. Sales Agent Pest Control Service Required: No Allergies No Known Allergies Allergy (Verified 09/28/23 14:43) Medication List - Last Reconciled 09/28/23 by Celso Jacome MD acetaminophen (Tylenol Extra Strength) 500 mg PO Q6H 15 days aripiprazole 10 mg PO BEDTIME clonazepam (Klonopin) 1 mg PO BEDTIME compr.stocking,knee,long,x-lrg As directed CPAP (CPAP Machine/Device) Please include ALL SUPPLIES diclofenac sodium 75 mg PO BID PRN lidocaine 5% 1 patch topical DAILY loratadine 10 mg PO DAILY PRN nicotine (polacrilex) 2 mg buccal Q2H PRN 15 days Do you need a note to return to daycare/school/sports/work: No HPI Obstructive sleep apnea HPI Details 43 YEARS OLD GENTLEMAN WITH MORBID OBESI TY WHO WAS RECENTLY STARTED. ON CPAP THERAPY COMES BACK FOR FOLLOW-UP. HE IS EXTREMELY HAPPY WITH THE USE OF CPAP, NOW HE CAN SLEEP ABOUT 6 HOURS WITH THE CPAP ON AND WAKES UP REFRESHED AND ENERGETIC. HE HAS NO ISSUE WITH THE CPAP MACHINE, HE HAD TO MAKE SOME ADJUSTMENT IN THE MASK WHICH IS DONE. NOW HE IS TRYING TO CONCENTRATE ON WALKING AND TRYING TO LOSE SOME WEIGHT. [facility] Medical History Nocturnal hypoxemia Morbid obesity CURLY (obstructive sleep apnea) Lumbar disc disease Obese Surgical History History of back surgery Family History Paternal Grandmother Mental health disorder Cancer Paternal Uncle Cancer Maternal Uncle Cancer Other Substance use disorder Social History Housing: House Alcohol intake: former Year quit: 2019 Patient Tobacco Use Status: Current everyday Tobacco user Cigarettes Per Day: 5 e-Cigarette/Vaping Use: Never Used service: No Current occupational status: disabled Current occupation: On SSI. Having difficulties with them currently. Current occupational exposures/hazards: No Cognitive needs: No Hearing needs: No Vision needs: No Review of Systems Const All systems reviewed & are unremarkable except as noted in HPI and below Eyes Reports no additional complaints ENT Reports no additional complaints Card Denies chest pain, Denies irregular heart rhythm, Denies leg edema and Denies dyspnea Resp Denies cough, Denies dyspnea and Denies wheezing GI Reports no additional complaints Reports no additional complaints Musc Reports arthralgias (Knees, getting intra-articular steroid injections) Skin/Breast Reports system reviewed and no additional complaints, except as documented Neuro Reports no additional complaints Psych Reports anxiety and Reports other (Being treated for bipolar disorder) Endo Reports no additional complaints Toni/Lymph Reports no additional complaints Aller/Immun Reports no additional complaints and Denies wheezing Physical Exam Vital Signs: Last Vital Signs Pulse 76 09/28/23 14:18 BP 120/64 09/28/23 14:18 Pulse Ox 98 09/28/23 14:18 Oxygen Delivery Method Room Air 09/28/23 14:18 BMI result Body Mass Index 45.4 Const Other: HE IS GROSSLY OBESE, WITH A ROUND FACE, LARGE NECK, AND ALSO HAS PROMINENT RE TROGANTHIA OF THE LOWER JAW General: comfortable, no acute distress, alert and awake Orientation/consciousness: patient oriented x3 HEENT Head: Yes normal to inspection General nose exam: No nasal polyps present and No nasal discharge present Face and sinus: Yes sinuses nontender Mouth: oropharynx abnormals (OROPHARYNX IS VERY NARROW AND CROWDED, MALLAMPATI CLASS 4) Teeth and gingiva: other (RETROGANTHIA OF LOWER JAW) Throat: Yes posterior oropharynx normal Eyes General: appearance normal, both eyes and all related structures Neck Neck: Yes normal visual inspection, Yes no lymphadenopathy, Yes trachea midline, Yes no JVD and Yes other (NECK CIRCUMFERENCE 20 IN) Thyroid: Thyroid normal Chest Chest palpation & inspection: normal inspection of the chest, normal palpation of entire chest wall and no tenderness Resp Other: PERCUSSION NOTE HARDLY PERCEPTIBLE BECAUSE. OF THE THICK CHEST WALL BREATH SOUNDS ARE DISTANT. BUT NO CREPITATIONS WHEEZES OR RHONCHI ARE HEARD. Cardio Palpation: PMI not normal (NOT PALPABLE) Rate: regular rate Rhythm: regular rhythm Heart sounds: no gallops and no murmurs Peripheral pulses: Peripheral pulses 2+ throughout GI Palpation (GI): Soft to palpation, nontender, No hepatosplenomegaly present, no masses and Other GI palpation findings present (ABDOMEN IS OBESE AND PROTUBERANT) Auscultation: normal bowel sounds Back/Spine/Pelvis Thoracic/Lumbar Spine: thoracic and lumbar spine normal to inspection Skin General skin exam: no rashes or lesions noted Neuro General: patient oriented x3 and no focal motor deficits Cranial nerves: Yes CN's II-XII intact bilaterally Extrem General: Yes normal to inspection, Yes no clubbing, cyanosis or edema and Yes no calf tenderness Psych Appearance: grossly normal and well kempt Speech and movement: Normal speech and movement present Results Reviewed Results Reviewed: COMPLIANCE REPORT FOR THE LAST 30 NIGHTS IS REVIEWED. HE HAS USED 30/30 NIGHTS. PRESSURE USED 18-19 CMs . AVERAGE USE IT PER NIGHT 5 HOURS 56 MINUTES. .THERE IS MODERATE AMOUNT OF AIR LEAK RESIDUAL AHI ONLY 1.2 Assessment & Plan Assessment & Plan (1) Morbid obesity: Comment: BMI=42.9 HE IS MORBIDLY OBESE, DIET EXPLAINED, HE HAS STARTED TO WALK ABOUT 2 MILES EVERY DAY. WE DISCUSSED ABOUT THE DIET, HE WILL CONCENTRATE ON EATING MORE OF FRUITS VEGGIES AND SALADS. Code(s): E66.01 - Morbid (severe) obesity due to excess calories Plan: ABOVE (2) CURLY (obstructive sleep apnea): Comment: VERY SEVERE OBSTRUCTIVE SLEEP APNEA, WITH NOCTURNAL HYPOXEMIA. HE IS VERY COMPLIANT AND HAPPY WITH THE USE OF CPAP. HE IS DEFINITELY BENEFITING AND REPORTS THAT SLEEP IS MUCH BETTER AND HE WAKES UP MORE REFRESHED Code(s): G47.33 - Obstructive sleep apnea (adult) (pediatric) Plan: HE IS COMMENDED FOR GOOD COMPLIANCE AND ADVISED TO CONTINUE TO USE CPAP AT LEAST FOR 6-7 HOURS EVERY NIGHT (3) Nocturnal hypoxemia: Comment: NOCTURNAL HYPOXEMIA SECONDARY TO SEVERE CURLY AND SLEEP-RELATED HYPOVENTILATION. HOPEFULLY THIS WILL BE CORRECTED BY USE OF CPAP. Code(s): G47.34 - Idiopathic sleep related nonobstructive alveolar hypoventilation Plan: WILL ORDER OVERNIGHT OXIMETRY RECORDING WITH THE USE OF CPAP. Coding Level of Care Code Est Pt Level 3 (35629) Diagnoses Morbid obesity E66.01 CURLY (obstructive sleep apnea) G47.33 Nocturnal hypoxemia G47.34
[2023-09-28 14:18] VITALS: BP 120/64; PULSE 76; O2SAT 98; BMI 45.4
== END 2023-09-28 14:50 | disposition home or self-care (01) ==
PROVIDERS: PCP Physician Assistant; Visit Provider Internal Medicine
DX: E66.01 Morbid (severe) obesity due to excess calories (principal); G47.33 Obstructive sleep apnea (adult) (pediatric); G47.34 Idiopathic sleep related nonobstructive alveolar hypoventilation
CPT/HCPCS: 99213

== ENCOUNTER → 2023-09-28 13:52 | Outpatient (BNVA) | payer OTHER, SELFPAY | PROVIDERS: PCP Physician Assistant; Visit Provider Internal Medicine | DX: G47.33 Obstructive sleep apnea (adult) (pediatric) (principal); G47.34 Idiopathic sleep related nonobstructive alveolar hypoventilation; E66.01 Morbid (severe) obesity due to excess calories; Z68.42 Body mass index [BMI] 45.0-49.9, adult | CPT/HCPCS: 99212 ==

== ENCOUNTER 2025-05-09 18:09 | Emergency (ER) | payer OTHER, SELFPAY ==
--- NOTE | ~2025-05-09 | XR_ITS ---
CLINICAL HISTORY: elbow swelling. Bursitit 3 view right elbow Comparison: None provided Findings: Bones intact. No dislocations. Medial and posterior soft tissue swelling. No joint effusion. No radiopaque foreign body. IMPRESSION: 1. No acute osseous findings. 2. Medial and posterior soft tissue swelling. This document has been electronically signed by: Mandy aBss MD on 05/09/2025 19:09:48
--- NOTE | ~2025-05-09 | XR_ITS ---
CLINICAL HISTORY: SOB 2 view chest x-ray Comparison: None provided Findings: Mild pulmonary vascular congestion. No consolidation, large effusion or pneumothorax. Normal size heart. No acute fracture. IMPRESSION: Mild pulmonary vascular congestion. This document has been electronically signed by: Mandy Bass MD on 05/09/2025 19:05:55
--- NOTE | ~2025-05-09 | US_ITS ---
CLINICAL HISTORY: leg swelling Venous duplex ultrasound bilateral lower extremity Comparison: None provided Findings: The visualized deep veins are fully compressible with normal Doppler color flow and spectral tracings. No popliteal cyst. IMPRESSION: 1. Negative for bilateral lower extremity deep vein thrombosis. This document has been electronically signed by: Mandy Bass MD on 05/09/2025 20:22:06
[2025-05-09 18:14] VITALS: BP 147/86; PULSE 91; RESP 22; TEMP 36.7; O2SAT 98; BMI 45.9
--- NOTE | 2025-05-09 18:24 | ED_ITS ---
HPI - General Adult General Chief complaint: General Medical Stated complaint: Difficulty breathing, Rash Time Seen by Provider: 05/09/25 19:40 Source: patient Mode of arrival: ambulatory Limitations: no limitations History of Present Illness ED Provider: Mario WILSON HPI narrative: The patient is a 45-year-old male with history of morbid obesity, CURLY, chronic pain, depression, anxiety, and osteoarthritis presenting to the ED with multiple medical complaints. Patient reports for the past 1-2 months he has been experiencing waxing and waning bilateral swelling of all 4 extremities, greater in the lower extremities, which worsens with exposure to heat and humidity or with increased exertion, with associated dyspnea. The patient denies associated chest pain, pleurisy, cough, hemoptysis, vomiting, diarrhea, abdominal pain, fever/chills, near-syncope, syncope, focal neurological deficit, recent sick contacts, or recent trauma. The patient also reports he has been experiencing a painful swelling of his right elbow for the past month without associated injury. Patient reports he gets intermittent right eye swelling and redness which has been occurring over the past 3 days. Patient reports his primary complaint is the waxing and waning swelling and dyspnea. The patient reports he has a 30 pack year smoking history, also admits to using cocaine for over 20 years, stopped using cocaine 1.5 years ago. Patient denies other substance abuse. The patient reports he has been noncompliant with any medical follow up for the past 9 months however did call his previous PCP and has an appointment scheduled in May. Related Data Home Medications ?Medication ?Instructions ?Recorded ?Confirmed clonazepam 1 mg tablet (Klonopin) 1 mg PO BEDTIME 03/1009/28/23 aripiprazole 10 mg tablet 10 mg PO BEDTIME 04/09/23 diclofenac sodium 75 mg 75 mg PO BID PRN 07/16/23 tablet,delayed release loratadine 10 mg tablet 10 mg PO DAILY PRN 07/16/23 09/28/23 Previous Rx's ?Medication ?Instructions ?Recorded acetaminophen 500 mg tablet 500 mg PO Q6H fever or siva n 15 07/01/22 (Tylenol Extra Strength) days #60 tabs compr.stocking,knee,long,x-lrg #2 ea 07/01/22 nicotine (polacrilex) 2 mg gum 2 mg buccal Q2H PRN rylie otine 04/09/23 cravings 15 days #110 ea CPAP (CPAP Machine/Device) #1 ea 06/16/23 lidocaine 5 % topical patch 1 patch topical DAILY #30 ea 08/28/23 Allergies Allergy/AdvReac Type Severity Reaction Status Date / Time No Known Allergies Allergy Verified 05/09/25 18:18 Review of Systems 2 Review of Systems: Yes all other systems are reviewed and are negative PMFSH Past Medical History Medical History Nocturnal hypoxemia Morbid obesity CURLY (obstructive sleep apnea) Lumbar disc disease Obese Surgical History History of back surgery Family History Family History Paternal Grandmother Mental health disorder Cancer Paternal Uncle Cancer Maternal Uncle Cancer Other Substance use disorder Social History Social History Housing: House Alcohol intake: former Year quit: 2019 Patient Tobacco Use Status: Current everyday Tobacco user Cigarettes Per Day: 5 e-Cigarette/Vaping Use: Never Used Advance Directives: No Advance Directives Information Provided: No Do you have a plan to hurt others: No Plan service: No Current occupational status: disabled Current occupation: On SSI. Having difficulties with them currently. Current occupational exposures/hazards: No Cognitive needs: No Hearing needs: No Vision needs: No Physical Exam ED Vital Signs: Vital Signs - 24 hr 05/09/25 18:14 05/09/25 19:26 05/09/25 21:51 Temperature 98.1 F 98.3 F 98.3 F Pulse Rate 91 86 86 Respiratory Rate 22 H 17 17 Blood Pressure 147/86 H 141/85 H 141/85 H Pulse Oximetry 98 96 96 Oxygen Delivery Method Room Air Room Air Room Air BMI result Body Mass Index 45.9 CONSTITUTIONAL: The patient appears non-toxic, well nourished and in no acute distress. Vital signs as documented. HEAD: Atraumatic, normocephalic. EYES: EOMs grossly intact, pupils equal, conjunctiva clear, no exudate. There is no appreciated conjunctival injection, no discharge or tearing. ENT: Nares patent, no discharge. Airway patent, no audible stridor, visible mucosa is pink and moist without noted lesions. NECK: Trachea is midline, no obvious masses or gross abnormalities. CHEST: Symmetric movement, normal appearance. LUNGS: LS present and CTAB, no w/r/r. Non-labored work of breathing. CARDIAC: Regular Rhythm, S1/S2 appreciated, no murmurs, rubs or gallops. ABDOMEN: Abdomen soft and non-tender x4 quadrants, no palpable masses or organomegaly. : Deferred. EXTREMITIES: Normal tone, moves all extremities spontaneously without reported pain. No obvious acute injury or deformity noted. There is 1+ pitting edema noted of the bilateral lower extremities, there is no edema of the bilateral upper extremities appreciated although patient reports subjective sensation of swelling. NEURO: Alert and oriented x3, CN II-XII appear grossly intact. Cerebellar Functioning grossly intact. No obvious sensory or motor deficits. Speech clear and appropriate. PSYCH: normal affect, appropriate eye contact, fluid speech, with appropriate response to questioning. No reported suicidality or homicidality. SKIN: Warm, dry, color appropriate, normal turgor. No rashes noted. Course Course Course Narrative: RME: 45-year-old male presents to ED for multiple complaints. Patient states bilateral leg swelling, shortness of breath, red dye, right elbow swollen. Patient came from [place] a month ago and presents to ED for full workup. Positive for bilateral pitting edema lower extremities. Positive for right eyelid redness. Medical Decision Making Medical Decision Making MDM Narrative: 9:19 PM 05/09/2025 (Sharon WILSON): The patient is a 45-year-old male presenting to the ED for evaluation of 1 month of waxing and waning bilateral lower extremity edema with associated subjective sensation of bilateral upper extremity swelling worse with heat exposure or exertion, as well as multiple other chronic complaints. The patient reports history of 30 pack year smoking history, as well as 20 years of cocaine use which he discontinued 1.5 years ago. The patient has not seen his PCP for the past 9 months. Patient reports he has been noncompliant with any medications for the past 9 months. The patient's exam reveals clear lung sounds, no obvious murmurs. Exam of the right elbow shows swelling without overlying erythema or open injury. No impaired range of motion. EKG is nonischemic, chest x-ray shows mild pulmonary vascular congestion, no other acute cardiopulmonary process. The patient's BNP is normal, troponin is negative, laboratory evaluation shows mild leukocytosis, mild anemia, no electrolyte abnormality or NADIA. The patient is elbow x-ray shows no fracture, there is medial and posterior soft tissue swelling. Bilateral lower extremity ultrasound shows no evidence of DVT. At this time there is no evidence of an acute emergent process requiring admission to the hospital and patient will be discharged to follow up with PCP in May. Patient was advised his swelling may be secondary to effects of cocaine use over multiple years. Patient encouraged to continue his cocaine sobriety and encouraged to consider cessation of smoking. Admission/Observation Consideration of admission/observation: Escalation of care including admission/observation considered Lab Data MDM Lab Attestation statement: I reviewed the patient's lab results. 05/09/25 18:36 05/09/25 18:36 Labs: Lab Results 05/09/25 Range/Units 18:36 WBC 12.0 H (4.8-10.8) X10*3/uL RBC 4.60 (4.60-5.80) X10*6/uL Hgb 12.6 L (14.0-18.0) g/dl Hct 36.3 L (42.0-52.0) % MCV 78.9 L (80.0-98.0) fL MCH 27.4 (27.0-33.0) pg MCHC 34.7 (31.0-36.0) g/dl RDW 14.6 (11.0-16.0) % Plt Count 210 (160-400) X10*3/uL MPV 10.0 (9.4-12.4) fL Immature Gran % (Auto) 0.2 (0.0-0.4) % Neut % (Auto) 51.1 (45-73) % Lymph % (Auto) 34.9 (20-40) % Mckinley % (Auto) 6.4 (2-11) % Eos % (Auto) 7.2 H (0-4) % Baso % (Auto) 0.2 (0-2) % Lymph # (Auto) 4.2 (1.2-4.9) X10*3/uL Mckinley # (Auto) 0.8 (0.1-1.2) X10*3/uL Eos # (Auto) 0.9 H (0.0-0.4) X10*3/uL Baso # (Auto) 0.0 (0.0-0.2) X10*3/uL Abs Immat Gran (auto) 0.03 (0.00-0.03) X10*3/uL Absolute Neuts (auto) 6.1 (2.0-8.3) x10*3/uL Absolute Nucleated RBC 0.000 (0.0-0.012) X10*3/uL Nucleated RBC % (auto) 0.0 (0.0-0.2) /100WBC Sodium 141 (135-145) mmol/L Potassium 4.0 (3.3-5.1) mmol/L Chloride 104 (96-108) mmol/L Carbon Dioxide 31 H (22-29) mmol/L Anion Gap 10 L (12-20) BUN 14 (9-16) mg/dL Creatinine 0.89 (0.5-1.4) mg/dL Estim Creat Clear Calc 149.4 Estimated GFR > 60 Random Glucose 104 (60-115) mg/dL Calcium 8.8 D (8.4-10.2) mg/dL Total Bilirubin 0.2 (0.0-1.0) mg/dL AST 23 (5-37) U/L ALT 16 (0-40) U/L Alkaline Phosphatase 64 (39-117) U/L Troponin I High Sens < 2.7 (<3.5-35.0) ng/L B-Natriuretic Peptide 14 (<100) pg/mL Total Protein 7.0 (6.5-8.0) g/dL Albumin 3.9 (3.5-5.0) g/dL Independent Interpretation I performed an independent interpretation of an: EKG (EKG shows normal sinus rhythm with a rate of 86, no evidence of acute ischemia, no ST elevation, no ectopy. QTC mildly prolonged at 483. No old for comparison.) Radiology Impression Discussion of test interpretation with radiology: I have reviewed the radiologist's reading. Radiologist Impression: Venous duplex ultrasound bilateral lower extremity Comparison: None provided Findings: The visualized deep veins are fully compressible with normal Doppler color flow and spectral tracings. No popliteal cyst. IMPRESSION: 1. Negative for bilateral lower extremity deep vein thrombosis. This document has been electronically signed by: Mandy Bass MD on 05/09/2025 20:22:06 CLINICAL HISTORY: elbow swelling. Bursitit 3 view right elbow Comparison: None provided Findings: Bones intact. No dislocations. Medial and posterior soft tissue swelling. No joint effusion. No radiopaque foreign body. IMPRESSION: 1. No acute osseous findings. 2. Medial and posterior soft tissue swelling. This document has been electronically signed by: Mandy Bass MD on 05/09/2025 19:09:48 CLINICAL HISTORY: SOB 2 view chest x-ray Comparison: None provided Findings: Mild pulmonary vascular congestion. No consolidation, large effusion or pneumothorax. Normal size heart. No acute fracture. IMPRESSION: Mild pulmonary vascular congestion. This document has been electronically signed by: Mandy Bass MD on 05/09/2025 19:05:55 Discharge Plan Discharge Clinical Impression: Edema, Cocaine abuse in remission, Bursitis Patient Disposition: Home, Self-Care Instructions: Hypertrophic Cardiomyopathy (ED), Restrictive Cardiomyopathy (ED), Elbow Bursitis (ED), Leg Edema (ED) Additional Instructions: Thank you for choosing [facility]'s Emergency Department for your care today. Thankfully your laboratory evaluation, x-ray, EKG, and exam today show no evidence of any acute emergent process requiring admission to the hospital or continued ED observation, and it is safe to discharge you home. Your swelling over the past month may be due to less efficient blood flow through your heart as a result of your previous cocaine use, this is a condition known as cardiomyopathy. Please continue to avoid using additional cocaine and it is extremely important that you quit smoking as this will make your symptoms worse. Please follow up with your primary care provider at your appointment in May to discuss referral to a bobbin hauler, obtaining an outpatient non- emergent echocardiogram (ultrasound of your heart), and discuss additional medications you can use to reduce your swelling, as well as reduce your risk of heart attack and stroke. Your right elbow swelling is likely due to inflammation of the bursa, a fluid- filled sac around your elbow. There is no evidence of infection and no indication for antibiotics. You may take alternating (staggered) doses of ibuprofen 600mg and Tylenol 1000mg every 4 hours as needed for any additional pain. Please rest the swollen area, and apply ice for 20 minutes every hour. Please follow up with your primary care physician for re-evaluation, additional management of your symptoms, and continued preventative care. If you do not have a primary care physician, please call the [facility] at [phone] to establish a new primary care physician. While waiting to establish your new primary care physician, you can call our [facility] at [phone] for non-emergency needs. Please return to the emergency department if you develop a severe or sudden change in your symptoms, a fever over 100.4 that does not improve with Tylenol or Ibuprofen, recurrent vomiting, or any other new or worsening symptoms or concerns. Prescriptions: No Action (DME) CPAP Machine/Device Device See Rx Instructions .Route Qty: 1 0RF Rx Instructions: Please include ALL SUPPLIES lidocaine 5 % adhesive patch,medicated 1 patch topical DAILY Qty: 30 0RF Rx Instructions: leave on most painful area for up to 12 hrs acetaminophen [Tylenol Extra Strength] 500 mg tablet 500 mg PO Q6H 15 Days Qty: 60 1RF (DME) compr.stocking,knee,long,x-lrg Misc See Rx Instructions .Route Qty: 2 0RF Rx Instructions: As directed aripiprazole 10 mg tablet 10 mg PO BEDTIME nicotine (polacrilex) 2 mg gum 2 mg buccal Q2H PRN (Reason: nicotine cravings) 15 Days Qty: 110 1RF diclofenac sodium 75 mg tablet,delayed release (DR/EC) 75 mg PO BID PRN loratadine 10 mg tablet 10 mg PO DAILY PRN clonazepam [Klonopin] 1 mg tablet 1 mg PO BEDTIME Rx Instructions: administer 30 minutes before bedtime Referrals: Ricky Kern PA-C [Primary Care Provider, Internal Medicine] Clinical Impression: Bursitis; Edema Interventions: ED Discharge Assessment Last Done: 05/09/25 21:51 Discharge Date/Time: 05/09/25 21:52 Print Language: Estonian
--- NOTE | 2025-05-09 18:32 | ECG_ITS ---
Test Reason : SOB Blood Pressure : */* mmHG Vent. Rate : 86 BPM Atrial Rate : 86 BPM P-R Int : 152 ms QRS Dur : 84 ms QT Int : 404 ms P-R-T Axes : 23 67 38 degrees QTcB Int : 483 ms Normal sinus rhythm Prolonged QT Abnormal ECG No previous ECGs available Referred By: Johny Mills Electronically Signed By: Kiet Marshall
[2025-05-09 18:40] LABS: MANUAL DIFF FLAG NO
[2025-05-09 18:44] LABS: Hematocrit 36.3 % (42.0-52.0); Hemoglobin 12.6 g/dl (14.0-18.0); Imm Gran Abs Auto 0.03 X10*3/uL (0.00-0.03); Imm Gran Pct Auto 0.2 % (0.0-0.4); Lymphocytes Absolute Auto 4.2 X10*3/uL (1.2-4.9); Mean Corpuscular HGB Conc 34.7 g/dl (31.0-36.0); Mean Corpuscular Hemoglobin 27.4 pg (27.0-33.0); Mean Corpuscular Volume 78.9 fL (80.0-98.0); NRBC Abs Auto 0.000 X10*3/uL (0.0-0.012); NRBC Pct Auto 0.0 /100WBC (0.0-0.2); Platelet Count 210 X10*3/uL (160-400); Red Blood Count 4.60 X10*6/uL (4.60-5.80); White Blood Count 12.0 X10*3/uL (4.8-10.8)
[2025-05-09 18:54] LABS: Alanine Aminotransferase 16 U/L (0-40); Albumin Level 3.9 g/dL (3.5-5.0); Alkaline Phosphatase 64 U/L (39-117); Anion Gap 10 (12-20); Aspartate Amino Transferase 23 U/L (5-37); Blood Urea Nitrogen 14 mg/dL (9-16); Calcium 8.8 mg/dL (8.4-10.2); Carbon Dioxide 31 mmol/L (22-29); Chloride 104 mmol/L (96-108); Creatinine Clr Calc Pharmacy 149.4; Estimated Glomerular Filt Rate > 60; Potassium 4.0 mmol/L (3.3-5.1); Sodium 141 mmol/L (135-145); Total Protein 7.0 g/dL (6.5-8.0)
[2025-05-09 19:00] LABS: B Type Natriuretic Peptide 14 pg/mL (<100)
[2025-05-09 19:02] LABS: Troponin-I High Sensitivity < 2.7 ng/L (<3.5-35.0)
[2025-05-09 19:26] VITALS: BP 141/85; PULSE 86; RESP 17; TEMP 36.8; O2SAT 96
[2025-05-09 21:51] VITALS: BP 141/85; PULSE 86; RESP 17; TEMP 36.8; O2SAT 96
== END 2025-05-09 21:52 | disposition home or self-care (01) ==
PROVIDERS: Physician Assistant; Emergency Provider Emergency Medicine; PCP Physician Assistant
DX: R60.0 Localized edema (principal); F14.11 Cocaine abuse, in remission; M70.31 Other bursitis of elbow, right elbow; Y93.9 Activity, unspecified; R06.02 Shortness of breath; M79.89 Other specified soft tissue disorders; Z91.198 Patient's noncompliance with other medical treatment and regimen for other reason; F17.210 Nicotine dependence, cigarettes, uncomplicated; E66.9 Obesity, unspecified; Z68.42 Body mass index [BMI] 45.0-49.9, adult
CPT/HCPCS: 36415; 71046; 73080; 80053; 83880; 84484; 85025; 93005; 93970; 99284

== ENCOUNTER → 2025-05-09 18:19 | Outpatient (BNV) | payer OTHER, SELFPAY | PROVIDERS: Emergency Provider Emergency Medicine; PCP Physician Assistant; Visit Provider Radiology Diagnostic Radiology | DX: R22.43 Localized swelling, mass and lump, lower limb, bilateral (principal); R06.02 Shortness of breath; M70.31 Other bursitis of elbow, right elbow | CPT/HCPCS: 71046; 73080; 93970 ==

== ENCOUNTER → 2025-05-09 18:32 | Outpatient (BNV) | payer OTHER, SELFPAY | PROVIDERS: Emergency Provider Emergency Medicine; PCP Physician Assistant; Visit Provider Internal Medicine Cardiovascular Disease | DX: R94.31 Abnormal electrocardiogram [ECG] [EKG] (principal); R06.02 Shortness of breath | CPT/HCPCS: 93010 ==

== ENCOUNTER 2025-06-22 10:48 | Outpatient (AMB) | payer OTHER, SELFPAY ==
--- NOTE | 2025-06-22 10:59 | A.OFFPC_ITS ---
Vital Signs 06/22/25 11:00 Height 5 ft 10 in Weight 305 lb BMI 43.8 BP 136/98 H Blood Pressure Location Lt brachial Position Sitting Pulse 89 Pulse Source Pulse Oximeter Pulse Oximetry (%) 93 Oxygen Delivery Method Room Air Intake Visit Reasons: follow up Senior Telecommunications Consultant Required: No Accompanied by: Allergies No Known Allergies Allergy (Verified 06/22/25 11:09) Medication List - Last Reconciled 06/22/25 by Ricky Kern PA-C acetaminophen (Tylenol Extra Strength) 500 mg PO Q6H 15 days aripiprazole 10 mg PO BEDTIME clonazepam (Klonopin) 1 mg PO BEDTIME compr.stocking,knee,long,x-lrg As directed CPAP (CPAP Machine/Device) Please include ALL SUPPLIES diclofenac sodium 75 mg PO BID PRN lidocaine 5% 1 patch topical DAILY loratadine 10 mg PO DAILY PRN nicotine (polacrilex) 2 mg buccal Q2H PRN 15 days Tobacco use date assessed: 06/22/25 Dental Screening Dental Screen Date: 06/22/25 Did you have a dental visit in the last 12 months?: Yes Did you have a dental problem in the last 6 months where you did not have access to dental care?: No Was dental information given to patient?: Patient has dentist HPI follow up HPI Details Patient is a 45-year-old male here today for a visit. It has been 2 years since I have seen patient.. ? Patient has a past medical history significant for morbid obesity, anxiety depression,?history of cocaine use disorder, obstructive sleep apnea tobacco dependency,? 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 Concern---> He also mentions sinus issues following exposure to diesel fuel, resulting in yellowish mucus and occasional bleeding, suggestive of sinusitis. Cocaine use disorder: The patient has been diagnosed with cardiomyopathy, potentially related to cocaine use, which he admits to using occasionally. He experiences significant swelling, which he attributes to his heart condition, and has been advised to undergo an echocardiogram and see a veneer stock layer. .. ?Osteoarthritis bilateral knees:? has been seen by Orthopedics and received an injection in his his knee which has not given him relief.? He did start using diclofenac which he reports offers him some relief.? He reports his knee pain is worse during cooler/ temporal weather.? Has gotten injections in his knees though have not been particularly effective on reducing his pain. .. Tobacco Dependence :? Unfortunately continues to smoke has trialed Chantix though was ineffective. He is willing to try nicotine gum to help quit. .. MAjor Depression:? Has started to see a mental health therapist and a psyc hiatrist and continues on Abilify and clonazepam. He feels his mental health is fairly stable .. Class 3 Obesity:? ? Patient does understand his BMI is well over 40 and will need to work on being more physically active and adapting to better eating habits to reduce his weight. . History of lumbar fusion:? Patient reports that having history of lumbar fusion.? Continues to have lower back pain to which he attributes to his continued obesity ? ? [facility] Medical History (Updated 06/22/25 @ 11:29 by Ricky Kern PA-C) Polyarthralgia Nocturnal hypoxemia Morbid obesity CURLY (obstructive sleep apnea) Lumbar disc disease Obese Surgical History History of back surgery Family History Paternal Grandmother Mental health disorder Cancer Dementia Diabetes Paternal Uncle Cancer Diabetes Borderline high blood pressure Maternal Uncle Cancer Other Substance use disorder Social History Housing: House Alcohol intake: former Year quit: 2019 Patient Tobacco Use Status: Current everyday Tobacco user Cigarettes Per Day: 5 e-Cigarette/Vaping Use: Never Used service: No Current occupational status: disabled Current occupation: On SSI. Having difficulties with them currently. Current occupational exposures/hazards: No Cognitive needs: No Hearing needs: No Vision needs: No Questionnaire PHQ-9 Over the last 2 weeks, how often have you been bothered by any of the following problems? 1. Little interest or pleasure in doing things: not at all 2. Feeling down, depressed, or hopeless: not at all 3. Trouble falling or staying asleep, or sleeping too much: not at all 4. Feeling tired or having little energy: several days 5. Poor appetite or overeating: several days 6. Feeling bad about yourself - or that you are a failure or have let yourself or your family down: several days 7. Trouble concentrating on things, such as reading the newspaper or watching television: several days 8. Moving or speaking so slowly that other people could have noticed. Or the opposite - being so fidgety or restless that you have been moving around a lot more than usual: several days 9. Thoughts that you would be better off or of hurting yourself in some way: several days Total score: 6 Depression Screening Interpretation: Positive Depression Screening Follow-up: Existing condition, Community Mental Health Worker F/U and Follow-up Visit Requested Depression Screening Done: Yes 58975 - PHQ-9 Billing: Yes Source: Developed by Drs. Vaibhav Velasquez, Arin Barraza, Lex Fabian and colleagues, with an educational bryant from [employer]. Thrive Questionnaire Date Thrive assessed: 04/09/23 I am a: Patient What is your living situation today?: I have a place to live, but I am worried about losing it in the future Within the past 12 months, did the food you bought not last and you didn't have the money to get more?: Sometimes True Within the past 12 months, did you worry whether your food would run out before you got money to buy more?: Sometimes True Do you have trouble paying for medicines?: No Do you have trouble getting transportation to medical appointments?: No Do you have trouble paying your heating and electricity bill?: No Do you have trouble taking care of your child, family member or friend?: No Do you have trouble with day-to-day activities such as bathing, preparing meals, shopping, managing finances, etc.?: Yes Are you currently unemployed and looking for a job?: No Are you interested in more education?: Yes Please select the resources that you would like help with: Housing/Intermediate, Food and Daily support Currently or been in a relationship where the following occur: No concerns reported THRIVE Score: 3 AUDIT C Alcohol Use Questionnaire (AUDIT-C) 1. How often do you have a drink containing alcohol?: Never Total Score: 0 ZO-7 AMB Questionnaire ZO-7 Date ZO - 7 assessed: 04/09/23 Feeling nervous, anxious, or on edge: 1 = Several days Not being able to stop or control worryin = Several days Worrying too much about different things: 1 = Several days Trouble relaxin = Several days Being so restless that it is hard to sit still: 1 = Several days Becoming easily annoyed or irritable: 1 = Several days Feeling afraid as if something awful might happen: 1 = Several days Total ZO-7 score (0-4 normal; 5-9 mild; 10-14 moderate; 15-21 severe): 7 Source: Developed by Drs. Vaibhav Velasquez, Arin Barraza, Lex Fabian and colleagues, with an educational bryant from [employer]. ZO-7 Assessment Billing ZO-7 Assessment Tool: ZO-7 Assessment 06340 Review of Systems Const Denies headache(s) Eyes Denies loss of vision ENT Denies vertigo, Denies dizziness, Denies headache(s) and Denies sore throat Card Denies chest pain, Denies leg edema and Denies lightheadedness Resp Denies cough, Denies hemoptysis and Denies wheezing GI Denies abdominal pain, Denies melena, Denies constipation, Denies diarrhea and Denies vomiting Denies dysuria, Denies urinary frequency and Denies urinary urgency Musc Denies arthralgias, Denies joint swelling, Denies numbness and Denies tingling Neuro Denies Abnormal speech present, Denies behavioral changes, Denies vertigo, Denies dizziness, Denies headache(s), Denies loss of vision, Denies memory loss, Denies numbness and Denies tingling Psych Denies anxiety, Denies behavioral changes, Denies depression, Denies memory loss and Denies panic attacks Toni/Lymph Denies easy bleeding and Denies easy bruising Aller/Immun Denies wheezing Physical exam (Primary Care) Vital Signs: Last Vital Signs Pulse 89 06/22/25 11:00 BP 136/98 H 06/22/25 11:00 Pulse Ox 93 06/22/25 11:00 Oxygen Delivery Method Room Air 06/22/25 11:00 BMI result Body Mass Index 43.8 BMI Assessment/Plan discussion: High BMI High, discussed plan: lifestyle, weight reduction, dietary and physical activity Tobacco/Smoking Status: Tobacco use Status Tobacco use date assessed 06/22/25 06/22/25 11:06 Patient Tobacco Use Status Current everyday Tobacco 06/22/25 10:59 e-Cigarette/Vaping Use Never Used 06/22/25 10:59 Are you ready to quit: Yes Tobacco cessation counseling provided: Yes Items discussed: Nicotine replacement Relapse Prevention: discussed the importance of a supportive environment, discussed negative mood or depression after quitting, weight gain after smoking is common and discussed dietary, exercise and/or lifestyle changes Number of minutes spent counselin CPT code: 30391 - 4-10 Minutes PHQ-9: PHQ-9 Score PHQ-9: Total score 6 06/22/25 11:07 Depression Screening Interpretation: Positive Depression Screening Follow-up: Existing condition, Community Mental Health Worker F/U and Follow-up Visit Requested Thrive Assessment: Date of Thrive Assessment Date Thrive assessed 04/09/23 06/22/25 10:59 Currently or been in a relationship where the following occur: No concerns reported Const Other: Obese- General: healthy appearing, no acute distress, alert and awake Nutritional Appearance: well nourished Orientation/consciousness: oriented to person, oriented to place and oriented to time HENMT Ears: TM's normal bilaterally General nose exam: Normal nasal mucous membranes and turbinates present Eyes Conjunctivae: conjunctivae normal Sclerae: sclerae normal Pupils: Equal, round and reactive pupils present Neck Neck: Yes no lymphadenopathy and Yes no JVD Thyroid: Thyroid normal Carotids: no bruits Resp Effort & Inspection: normal respiratory effort and not tachypneic Auscultation: no crackles, no rales, no rhonchi and no wheezes Cardio Rate: regular rate Rhythm: regular rhythm Heart sounds: no murmurs and normal S1 and S2 GI Palpation (GI): Soft to palpation, nontender, no hepatomegaly and no splenomegaly Auscultation: normal bowel sounds Skin General skin exam: no rashes or lesions noted and dry skin Neuro General: oriented to person, oriented to place and oriented to time Cranial nerves: Yes Equal, round and reactive pupils present Speech: No Abnormal speech present Gait exam (Neuro): Normal gait present Motor exam (neuro): no tremor noted Extrem Right upper extremity: full ROM Left upper extremity: full ROM Right lower extremity: full ROM; no edema Left lower extremity: full ROM; no edema Psych Mental Status: mental status grossly normal Speech and movement: Normal speech and movement present Affect: normal affect Attitude: cooperative Thought process: Normal thought process present Coding Level of Care Code Est Pt Level 4 (23945) Diagnoses Other cardiomyopathy I42.8 Cardiomyopathy type: other Cocaine abuse F14.10 MDD (major depressive disorder), recurrent episode, moderate F33.1 ZO (generalized anxiety disorder) F41.1 CURLY (obstructive sleep apnea) G47.33 Polyarthralgia M25.50 Primary hypertension I10 Hypertension type: primary hypertension Tobacco dependence F17.200 Acute non-recurrent frontal sinusitis J01.10 Chronicity: acute Recurrence: non-recurrent Sinusitis location: frontal Additional Codes ZO-7 Assessment Billing - ZO-7 Assessment Tool: ZO-7 Assessment 57125 ([id number]) PHQ-9 - 07658 - PHQ-9 Billing: Yes ([id number]) Vital Signs *Quality* - CPT code: 24353 - 4-10 Minutes ([id number]) Assessment & Plan Assessment & Plan (1) Cardiomyopathy: Code(s): I42.9 - Cardiomyopathy, unspecified Category: Medical Qualifiers: Cardiomyopathy type: other Qualified Code(s): I42.8 - Other cardiomyopathies Plan: An echocardiogram will be performed to assess heart function, and a referral to a veneer stock layer will be made for further evaluation. The patient is advised to reduce cocaine use as it may exacerbate cardiac issues. (2) Cocaine abuse: Code(s): F14.10 - Cocaine abuse, uncomplicated Category: Medical Plan: The patient will be prescribed baclofen, which may help reduce cravings for cocaine. Continued support and counseling will be provided to address substance use. (3) MDD (major depressive disorder), recurrent episode, moderate: Code(s): F33.1 - Major depressive disorder, recurrent, moderate Category: Medical Plan: Patient's PHQ-9 score positive for depression which has been existing condition for him.. The patient will be referred to a mental health therapist and psychiatrist for ongoing management of depression. Medication management will include restarting Abilify, which the patient found helpful previously. (4) ZO (generalized anxiety disorder): Code(s): F41.1 - Generalized anxiety disorder Category: Medical Plan: Patient's ZO-7 score positive for anxiety which has been existing condition for him. Likely exacerbated by his cocaine use. Again will restart Abilify. He is asking for clonazepam though did not feel it is appropriate for patient to start this medication without being evaluated by Psychiatry. (5) CURLY (obstructive sleep apnea): Comment: VERY SEVERE OBSTRUCTIVE SLEEP APNEA, WITH NOCTURNAL HYPOXEMIA. HE IS VERY COMPLIANT AND HAPPY WITH THE USE OF CPAP. HE IS DEFINITELY BENEFITING AND REPORTS THAT SLEEP IS MUCH BETTER AND HE WAKES UP MORE REFRESHED Code(s): G47.33 - Obstructive sleep apnea (adult) (pediatric) Category: Medical Plan: The patient will continue using the CPAP machine, which has improved sleep quality. (6) Polyarthralgia: Code(s): M25.50 - Pain in unspecified joint Category: Medical Plan: Further evaluation for rheumatoid arthritis will include blood tests for ELVER and rheumatoid factor. (7) HTN (hypertension): Code(s): I10 - Essential (primary) hypertension Category: Medical Qualifiers: Hypertension type: primary hypertension Qualified Code(s): I10 - Essential (primary) hypertension Plan: Patient's blood pressure elevated today in office. Advised on completely discontinuing his cocaine use. Will start off Lasix 20 mg every other day due to his lower extremity edema and we hope to get antihypertensive control with his medication. Goal blood pressures to be below 140/90 (8) Tobacco dependence: Comment: HE IS A HARD CORE SMOKER. HAD A GOOD DISCUSSION WITH HIM, HE NEEDS TO QUIT SMOKING, CURRENTLY USING NICOTINE BUCKLE LOZENGES . Code(s): F17.200 - Nicotine dependence, unspecified, uncomplicated Category: Medical Plan: Patient does understand he needs to quit smoking in his willing to start up Chantix to help him quit smoking completely. (9) Sinus infection: Code(s): J32.9 - Chronic sinusitis, unspecified Category: Medical Qualifiers: Chronicity: acute Recurrence: non-recurrent Sinusitis location: frontal Qualified Code(s): J01.10 - Acute frontal sinusitis, unspecified Plan: An antibiotic will be prescribed to treat sinusitis symptoms. Orders: Orders CA echo transthoracic complete 06/22/25 I42.8 - Other cardiomyopathies NT-proBNP 06/22/25 F14.10 - Cocaine abuse, uncomplicated Comprehensive [place]. Panel Fast 06/22/25 E78.9 - Disorder of lipoprotein metabolism, unspecified Complete Blood Count no Diff 06/22/25 E78.9 - Disorder of lipoprotein metabolism, unspecified ELVER Reflex Titer and Pattern 06/22/25 M25.50 - Pain in unspecified joint Lipid Panel 06/22/25 E78.9 - Disorder of lipoprotein metabolism, unspecified Rheumatoid Factor 06/22/25 M25.50 - Pain in unspecified joint Cyclic Citrullinated Peptide 06/22/25 M25.50 - Pain in unspecified joint Prostate Specific Antigen Scr 06/22/25 Z12.5 - Encounter for screening for malignant neoplasm of prostate Referrals Cardiology Referral I42.8 - Other cardiomyopathies Counseling Referral F41.1 - Generalized anxiety disorder, Z13.220 - Encounter for screening for lipoid disorders Medications: New furosemide (Lasix) 20 mg PO Q OTHER DAY 15 tabs 1RF 30 days I10 - Essential (primary) hypertension amoxicillin 875 mg PO BID 14 tabs 0RF 7 days J32.9 - Chronic sinusitis, unspecified baclofen 10 mg PO BID 60 tabs 1RF 30 days F14.10 - Cocaine abuse, uncomplicated varenicline tartrate (Chantix Starting Month Box) PO PER PKG DIR 53 ea 0RF F17.200 - Nicotine dependence, unspecified, uncomplicated Changed From aripiprazole 10 mg PO BEDTIME F33.1 - Major depressive disorder, recurrent, moderate To aripiprazole 10 mg PO BEDTIME 90 tabs 1RF 90 days F33.1 - Major depressive disorder, recurrent, moderate Discontinued nicotine (polacrilex) Discontinued Reason: Doctor's Order 2 mg buccal Q2H 15 days PRN 110 ea 1RF nicotine cravings F17.200 - Nicotine dependence, unspecified, uncomplicated
[2025-06-22 11:00] VITALS: BP 136/98; PULSE 89; O2SAT 93; BMI 43.8
--- OUTSIDE RECORDS SUMMARY | 2025-06-22 12:25 | XMS_ITS | Clinical Summary ---
[facility] Address [address] [place] [address] Care Team Providers Care Neurobiologist Name Role Phone Lili Arreaga MD Primary Care Provider Unav ailable Surgical History Surgery Date Site/Laterality Comments OTHER SURGICAL HISTORY 2003 PROCEDURE: LUMBAR SPINE FUSION, LAT TRANSVERSE; COMMENT: [place]um[place] OTHER SURGICAL HISTORY 2011 PROCEDURE: COLONOSCOPY, SURGICAL; COMMENT: normal, repeat in 10 years Medical History Medical History Date Comments Chronic low back pain with left-sided sciatica 01/07/2017 DX:Chronic low back pain wit h left-sided sciatica Family history of colon cancer 12/07/2014 D X:Family history of colon cancer; COMMENT: Uncle and cousins.pt states has had colonoscopy 2010 Sickle cell trait ([facility]/HCC V24) 01/07/2017 DX:Sickle cell trait ([facility]) Family History Medical History Relation Name Comments Alcohol/Drug Father Other: sickle cell trait Father Heart failure Maternal Grandfather Heart attack Maternal Grandmother Hypertension Mother Other: sickle cell trait Mother Heart attack Sister 1 sickle cell ane shantelle Colon cancer Uncle 1 paternal Relation Name Status Comments Father Alive Maternal Grandfather Maternal Grandmother Mother Alive Sister 1 Sister 2 (Age 39) Uncle 1 Uncle 2 Social History Tobacco Use Types Packs/Day Years Used Date Smoking Tobacco: Every Day Cigarettes Smokeless Tobacco: Never Alcohol Use Standard Drinks/Week Comments No 0 (1 standard drink = 0.6 oz pur e alcohol) Sex and Gender Information Value Date Recorded Sex Assigned at Not on file Legal Sex Male 4:37 AM EST Gender Identity Not on file Sexual Orientation Not on file Obstetrics History Plan of Treatment Health Maintenance Due Date Last Done Comments Hepatitis B Vaccines (1 of 3 - 19+ 3-dose series) 1998 Pneumococcal Vaccine: Pediat rics (0 to 5 Years) and At-Risk Patients (6 to 49 Years) (1 of 2 - PCV) 1998 Cholesterol Screening (Lipid Panel) 09/21/2022 Colorectal Cancer Screening: Colonoscopy 09/21/2022 HIV Screening 09/21/2022 Hepatitis C Screening 09/21/2022 Social Influencers of Health Screening 09/21/2022 Depression Screening 10/19/2024 DTaP,Tdap,and Td Vaccines (2 - Td or Tdap) 12/07/2024 12/07/2014 COVID-19 Vaccine (1 - 2023-2 5 season) 2025 Influenza Vaccine (#1) 2025 12/07/2014 HIB Vaccines Aged Out No longer eligi ble based on patient's age to complete this topic HPV Vaccines Aged Out No longer eligi ble based on patient's age to complete this topic Hepatitis A Vaccines Aged Out No long er eligible based on patient's age to complete this topic IPV Vaccines Aged Out No longer eligi ble based on patient's age to complete this topic MMR Vaccines Aged Out No longer eligi ble based on patient's age to complete this topic Meningococcal ACWY Vaccine Aged Out N o longer eligible based on patient's age to complete this topic Meningococcal B Vaccine Aged Out No l onger eligible based on patient's age to complete this topic RSV Immunization Patients Un kasandra 20 months Aged Out No longer eligible b ased on patient's age to complete this topic Varicella Vaccines Aged Out No longer eligible based on patient's age to complete this topic Care Teams Neurobiologist Relationship Specialty Start Date End Date Lili Arreaga MD PCP - General Internal Medicine 01/05/17
== END 2025-06-22 11:35 | disposition home or self-care (01) ==
LOC: HO.HMCH 10:49
PROVIDERS: PCP Physician Assistant; Visit Provider Physician Assistant
DX: I42.8 Other cardiomyopathies (principal); F14.10 Cocaine abuse, uncomplicated; F33.1 Major depressive disorder, recurrent, moderate; F41.1 Generalized anxiety disorder; G47.33 Obstructive sleep apnea (adult) (pediatric); M25.50 Pain in unspecified joint; I10 Essential (primary) hypertension; F17.200 Nicotine dependence, unspecified, uncomplicated; J01.10 Acute frontal sinusitis, unspecified

== ENCOUNTER → 2025-06-22 10:48 | Outpatient (BNVA) | payer OTHER, SELFPAY | PROVIDERS: PCP Physician Assistant; Visit Provider Physician Assistant | DX: E66.01 Morbid (severe) obesity due to excess calories (principal); G47.33 Obstructive sleep apnea (adult) (pediatric); F17.200 Nicotine dependence, unspecified, uncomplicated; M17.0 Bilateral primary osteoarthritis of knee; M19.012 Primary osteoarthritis, left shoulder; M19.011 Primary osteoarthritis, right shoulder; E66.813 Obesity, class 3; I42.8 Other cardiomyopathies; F14.10 Cocaine abuse, uncomplicated; F33.1 Major depressive disorder, recurrent, moderate; F41.1 Generalized anxiety disorder; M25.50 Pain in unspecified joint; I10 Essential (primary) hypertension; J01.10 Acute frontal sinusitis, unspecified; Z98.1 Arthrodesis status; Z68.41 Body mass index [BMI] 40.0-44.9, adult | CPT/HCPCS: 96127; 99212 ==

== ENCOUNTER → 2025-08-23 07:29 | Outpatient (REF) | payer OTHER, SELFPAY ==
--- OUTSIDE RECORDS SUMMARY | 2025-08-23 07:32 | XMS_ITS | Encounter Summary ---
Author Organization [facility] Address [address] [place] [address] Care Team Providers Care Return Checker Name Role Phone Anne Aguayo MD Primary Care Provider Unavail able Chicho Peralta MD Primary Care Provider Lili Arreaga MD Primary Care Provider Unav ailable Encounter Details Date Type Department Care Team Description 10/28/2013 Release of Information Medical Records [address] [place] [id number] Abstract, Provider Social History Tobacco Use Types Packs/Day Years Used Date Smoking Tobacco: Every Day Cigarettes 1 Alcohol Use Standard Drinks/Week Comments Not Asked 0 (1 standard drink = 0.6 oz pur e alcohol) Sex Assigned at Date Recorded Not on file documented as of this encounter Plan of Treatment Not on file documented as of this encounter Visit Diagnoses Not on filedocumented in this encounter Care Teams Return Checker Relationship Specialty Start Date End Date Anne Aguayo MD PCP - General Internal Medicine 01/17/13 08/09/15 Chicho Peralta MD [address] [place] [id number] PCP - General Internal Medicine 08/10/15 01/04/17 Lili Arreaga MD [address] [place] [id number] PCP - General Internal Medicine 01/05/17 documented as of this encounter
--- OUTSIDE RECORDS SUMMARY | 2025-08-23 07:32 | XMS_ITS | Encounter Summary ---
Author Organization [facility] Address [address] [place] [address] Care Team Providers Care Caregiver Services Home Name Role Phone Lili Arreaga MD Primary Care Provider Unav ailable Reason for Visit * Reason Onset Date Comments APPOINTMENT 02/05/2017 Encounter Details Date Type Department Care Team Description 02/05/2017 Telephone Radiology - [address] [address] Arnie Anderson PA-C APPOINTMENT Social History Tobacco Use Types Packs/Day Years Used Date Smoking Tobacco: Every Day Cigarettes 0.5 Smokeless Tobacco: Never Alcohol Use Standard Drinks/Week Comments No 0 (1 standard drink = 0.6 oz pur e alcohol) Sex Assigned at Date Recorded Not on file documented as of this encounter Miscellaneous Notes * Telephone Encounter - Arnie Anderson PA-C - 02/05/2017 12:30 PM EDT Yes you can remove order. * Telephone Encounter - Juany De León - 02/05/2017 12:07 PM EDT Attempted to called three times to book appoinment at first, then patient no showed 01/19/17 and a letter was sent and no response back from patient. Is it all right to remove order so we do not keepcontacting patient. Thank you Radiology documented in this encounter Plan of Treatment Not on file documented as of this encounter Visit Diagnoses Not on filedocumented in this encounter Care Teams Caregiver Services Home Relationship Specialty Start Date End Date Lili Arreaga MD PCP - General Internal Medicine 01/05/17 documented as of this encounter
--- OUTSIDE RECORDS SUMMARY | 2025-08-23 07:32 | XMS_ITS | Clinical Summary ---
Author Organization [facility] Address [address] [place] [address] Care Team Providers Care Corn Breeder Name Role Phone Lili Arreaga MD Primary [...] has had colonoscopy 2010 Sickle cell trait ([facility]/HCC V24) 01/07/2017 DX:Sickle cell trait ([facility]) Family History Medical History Relation Name Comments [...] Health Maintenance Due Date Last Done Comments Colorectal Cancer Screening: Colonoscopy 1979 Hepatitis B Vaccines (1 of 3 - 19+ 3-dose series) 1998 Pneumococcal Vaccine: Pediat rics (0 to 5 Years) and At-Risk Patients (6 to 49 Years) (1 of 2 - PCV) 1998 Cholesterol Screening (Lipid Panel) 09/21/2022 HIV Screening 09/21/2022 Hepatitis C Screening 09/21/2022 Social Influencers of Health Screening 09/21/2022 Depression Screening 10/19/2024 DTaP,Tdap,and Td Vaccines (2 - Td or Tdap) 12/07/2024 12/07/2014 COVID-19 Vaccine (1 - 2023-2 5 season) 2025 Influenza Vaccine (#1) 2025 12/07/2014 RSV Immunization Adult Patie nts (1 - 1-dose 75+ series) 2054 HIB Vaccines Aged Out No longer eligi [...] age to complete this topic Care Teams Corn Breeder Relationship Specialty Start Date End Date Lili Arreaga MD PCP - General Internal Medicine 01/05/17
--- OUTSIDE RECORDS SUMMARY | 2025-08-23 07:32 | XMS_ITS | Encounter Summary ---
Author Organization [facility] Address [address] [place] [address] Care Team Providers Care Lock Plater Name Role Phone Anne Aguayo MD Primary Care Provider Unavail able Chicho Peralta MD Primary Care Provider [phone] Lili Arreaga MD Primary Care Provider Unav ailable Encounter Details Date Type Department Care Team Description 12/07/2014 Business Doc Medical Records [address] [place] [address] Abstract, Provider Social History Tobacco Use Types Packs/Day Years Used Date Smoking Tobacco: Every Day Cigarettes 1 Smokeless Tobacco: Never Alcohol Use Standard Drinks/Week Comments No 0 (1 standard drink = 0.6 oz pur e alcohol) Sex Assigned at Date Recorded Not on file documented as of this encounter Plan of Treatment Not on file documented as of this encounter Visit Diagnoses Not on filedocumented in this encounter Care Teams Lock Plater Relationship Specialty Start Date End Date Anne Aguayo MD PCP - General Internal Medicine 01/17/13 08/09/15 Chicho Peralta MD [address] [place] [address] PCP - General Internal Medicine 08/10/15 01/04/17 Lili Arreaga MD [address] [place] [id number] PCP - General Internal Medicine 01/05/17 documented as of this encounter
--- NOTE | 2025-08-23 07:41 | CA_ITS ---
Transthoracic Echocardiogram Patient (Last, First, Middle): Yunior Gibson, Gender: M Date of : 1980 Age: 45 Procedure Date: 08/23/2025 Procedure Type: Transthoracic Echocardiogram Location: OP Height: 177.8 cm Weight: 138.35 kg BSA: 2.50 m2 Heart Rate: 82 bpm BP: 128 / 78 mmHg Clothing Supervisor: JUMA Referring MD: Ricky Kern PA-C Air Brake Man: Armani Arriaga MD Symptoms: I42.8 - Other cardiomyopathies Study Quality: Technically Difficult ECG Rhythm: Sinus Conclusions: - Technically limited study but overall appears to be within normal limits Findings Procedure Information Contrast agent, definity, is being given per protocol without apparent complications. The quality of the study was technically difficult. The study quality is limited by patients body habitus. Left Ventricle Normal left ventricular size, thickness, and systolic function. The visually estimated ejection fraction is between 55-60%. Spectral Doppler is indicative of a normal filling pattern. Right Ventricle Normal right ventricular cavity size and systolic function. Atria The left atrium is normal in size. Interatrial shunt cannot be excluded. The right atrium is normal in size. Aortic Valve The aortic valve was not well visualized. There is no aortic valve stenosis. There is no aortic valve regurgitation. Mitral Valve Likely normal mitral valve structure and function. There is no mitral valve regurgitation. There is no mitral valve stenosis. Pulmonic Valve The pulmonic valve was not well visualized. Tricuspid Valve The tricuspid valve was not well visualized. Tricuspid regurgitation envelope is inadequate for calculation of right ventricular systolic pressure. Normal right atrial pressure. Great Vessels All visible segments of the aorta are normal in size. The pulmonary artery was not well visualized. Venous The inferior vena cava is normal in size. Pericardium/Pleural The pericardium was not well visualized. Prior Study Comparison No prior study available for comparison. Measurements 2D Linear Measurements IVSd: 0.78 0.6-0.9/0.6-1.0 cm LVIDd: 4.78 3.9-5.3/4.2-5.9 cm LVIDd Index: 1.91 2.4-3.2/2.2-3.1 cm/m2 LVIDs: 3.31 2.0-3.6 cm LVPWd: 0.80 0.7-1.1 cm LA Diam: 3.90 2.7-3.8/3.0-4.0 cm LAIDs Index: 1.56 1.5-2.3 cm/m2 LV Mass: 153.21 67-162/88-224 g LV Mass Index: 61.28 43-95/49-115 g/m2 LVOT Diam: 2.30 3.0+(-)1.3 cm 2D Systolic Function EF 4C: 61.80 >55% EF 2C: 56.90 >55% EF BiP: 58.40 >55% Mitral Valve MV Pk E: 0.94 MV PK A: 0.74 MV Decel Time: 158.00 E/A: 1.30 E'Lateral: 8.27 E'Medial: 8.05 E/E' Med: 11.70 E/E' Lat: 11.40 PHT: 46.00 MVA PHT: 4.78 Decel Harford: 5.97 Aortic Valve AoV Pk Watson: 1.26 AoV Pk Grad: 6.00 CHRIS: 3.00 LVOT LVOT Pk Watson: 1.01 LVOT Mn Watson: 0.73 LVOT VTI: 0.25 LVOT Pk Grad: 4.00 LVOT Mn Grad: 3.00 LVOT Diam: 2.30 LVOT Area: 4.15 Diastolic Function MV Pk E: 0.94 MV Pk A: 0.74 E/A: 1.30 E'Medial: 8.05 E/E' Med: 11.70 E' Laterial: 8.27 E/E' Lat: 11.40 Right Ventricle TAPSE (mm): 31.00 TVS' Watson: 12.70 Tricuspid Valve RA Press: 3.00 Great Vessels Aorta Sinus of Valsalva: 3.70 2.0-3.5 cm Ao Asc: 3.20 2.1-3.4 cm Ao Arch: 2.80 Pulmonary Veins Pulm Vein S/D 1.20 Pulmonary Valve PV Pk Watson: 0.85 Peak PV Grad: 3.00 Updated in Other Vendor System with Status of Final Armani Arriaga MD electronically signed on 08/23/2025 2:48:05 PM with status of Final
[2025-08-23 08:24] LABS: Hematocrit 39.7 % (42.0-52.0); Hemoglobin 13.4 g/dl (14.0-18.0); Mean Corpuscular HGB Conc 33.8 g/dl (31.0-36.0); Mean Corpuscular Hemoglobin 26.9 pg (27.0-33.0); Mean Corpuscular Volume 79.7 fL (80.0-98.0); NRBC Abs Auto 0.000 X10*3/uL (0.0-0.012); NRBC Pct Auto 0.0 /100WBC (0.0-0.2); Platelet Count 244 X10*3/uL (160-400); Red Blood Count 4.98 X10*6/uL (4.60-5.80); White Blood Count 13.1 X10*3/uL (4.8-10.8)
[2025-08-23 09:30] LABS: Alanine Aminotransferase 24 U/L (0-40); Albumin Level 4.0 g/dL (3.5-5.0); Alkaline Phosphatase 70 U/L (39-117); Anion Gap 9 (12-20); Aspartate Amino Transferase 24 U/L (5-37); Blood Urea Nitrogen 15 mg/dL (9-16); Calcium 8.5 mg/dL (8.4-10.2); Carbon Dioxide 32 mmol/L (22-29); Chloride 104 mmol/L (96-108); Cholesterol 177 mg/dL (<200); Estimated Glomerular Filt Rate > 60; HDL Cholesterol 43 mg/dL (>40); Potassium 3.8 mmol/L (3.3-5.1); Sodium 141 mmol/L (135-145); Total Protein 7.4 g/dL (6.5-8.0); Triglycerides 135 mg/dL (<150)
[2025-08-29 22:04] LABS: Anti Nuclear Antibody Screen NEGATIVE (NEGATIVE)
== END ==
LOC: HO.CARD 07:29
PROVIDERS: PCP Physician Assistant; Visit Provider Physician Assistant
DX: I42.8 Other cardiomyopathies (principal); M25.50 Pain in unspecified joint; E78.9 Disorder of lipoprotein metabolism, unspecified; Z12.5 Encounter for screening for malignant neoplasm of prostate; Z01.84 Encounter for antibody response examination
CPT/HCPCS: 36415; 80053; 80061; 84153; 85027; 86038; 86200; 86431; 93306; Q9957

== ENCOUNTER → 2025-08-23 07:41 | Outpatient (BNV) | payer OTHER, SELFPAY | PROVIDERS: PCP Physician Assistant; Visit Provider Internal Medicine Cardiovascular Disease | DX: I42.8 Other cardiomyopathies (principal) | CPT/HCPCS: 93306 ==

== ENCOUNTER 2025-09-07 10:51 | Outpatient (AMB) | payer OTHER, SELFPAY ==
[2025-09-07 11:28] VITALS: BP 134/68; PULSE 85; RESP 18; O2SAT 99; BMI 45.4
--- NOTE | 2025-09-07 11:28 | A.OFFPC_ITS ---
Vital Signs 09/07/25 11:28 Height 5 ft 10 in Weight 316 lb 2 oz BMI 45.4 BP 134/68 Blood Pressure Location Lt brachial Position Sitting Respiration 18 Pulse 85 Pulse Source Pulse Oximeter Temp Source Temporal Artery Scan Pulse Oximetry (%) 99 Oxygen Delivery Method Room Air Intake Visit Reasons: Annual Exam Syrup Maker Cook Required: No Accompanied by: Self / Same As Patient Allergies No Known Allergies Allergy (Verified 09/07/25 11:42) Medication List - Last Reconciled 09/07/25 by Ricky Kern PA-C acetaminophen (Tylenol Extra Strength) 500 mg PO Q6H 15 days aripiprazole 10 mg PO BEDTIME 90 days baclofen 10 mg PO BID 30 days clonazepam (Klonopin) 1 mg PO BEDTIME compr.stocking,knee,long,x-lrg As directed CPAP (CPAP Machine/Device) Please include ALL SUPPLIES diclofenac sodium 75 mg PO BID PRN furosemide (Lasix) 20 mg PO Q OTHER DAY 30 days lidocaine 5% 1 patch topical DAILY loratadine 10 mg PO DAILY PRN varenicline tartrate (Chantix Starting Month Box) PO PER PKG DIR Tobacco use date assessed: 09/07/25 Dental Screening Dental Screen Date: 09/07/25 Did you have a dental visit in the last 12 months?: Yes Did you have a dental problem in the last 6 months where you did not have access to dental care?: No Was dental information given to patient?: Patient has dentist HPI Annual Exam HPI Details Patient is a 45-year-old male here today for an annual physical Patient has a past medical history significant for morbid obesity, anxiety depression,?history of cocaine use disorder, obstructive sleep apnea tobacco dependency,? 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 Concern---> He also mentions sinus issues following exposure to diesel fuel, resulting in yellowish mucus and occasional bleeding, suggestive of sinusitis. This is likely a sequelae of his previous nasal cocaine use. He reports a amoxicillin did help reduce his nasal and sinus congestion. Cocaine use disorder: (now in remission) He reports he has quit doing cocaine over last 2 months. The patient has been diagnosed with cardiomyopathy, potentially related to cocaine use, which he admits to using occasionally. He has been using Lasix 20 mg every other day which he reports has helped a bit though still has swelling in his upper extremities and lower extremities. Normal findings in an appropriate ejection fraction. Unfortunately patient continues to swelling particularly in his upper extremities and lower extremities. He reports Lasix has been helpful. Of note patient did lose a few lb since last office visit Of note recently underwent an echocardiogram which did show. . .. Tobacco Dependence :? Unfortunately continues to smoke . He is interested in starting Chantix again to help him quit smoking. .. MAjor Depression:? Has started to see a mental health therapist and a psychiatrist and continues on Abilify and clonazepam. He feels his mental health is fairly stable .. Class 3 Obesity:? Has lost a few lb since last office visit. Made some dietary changes ? Patient does understand his BMI is well over 40 and will need to work on being more physically active and adapting to better eating habits to reduce his weight. . History of lumbar fusion:? Patient reports that having history of lumbar fusion .? Continues to have lower back pain to which he attributes to his continued obesity. Colorectal cancer screening: Reports a family history of colon cancer, would like to get another colonoscopy. Vaccines: Up-to-date with pneumonia vaccine, Needs flu vaccine Laboratory Tests 07/08/22 04/24/23 05/09/25 12:32 13:35 18:36 WBC 12.0 H RBC 5.14 Hgb Creatinine 0.78 Fasting Glucose 118 H Random Glucose 104 Cholesterol 200 188 LDL Cholesterol, C alc 132 TSH 0.82 08/23/25 07:39 WBC 13.1 H RBC Hgb 13.4 L Creatinine 0.83 Fasting Glucose Random Glucose Cholesterol 177 LDL Cholesterol, C alc 107 H [facility] Medical History Polyarthralgia Nocturnal hypoxemia Morbid obesity CURLY (obstructive sleep apnea) Lumbar disc disease Obese Surgical History History of back surgery Family History Paternal Grandmother Mental health disorder Cancer Dementia Diabetes Paternal Uncle Cancer Diabetes Borderline high blood pressure Maternal Uncle Cancer Other Substance use disorder Social History Housing: House Alcohol intake: former Year quit: 2019 Patient Tobacco Use Status: Current everyday Tobacco user Cigarettes Per Day: 5 e-Cigarette/Vaping Use: Never Used service: No Current occupational status: disabled Current occupation: On SSI. Having difficulties with them currently. Current occupational exposures/hazards: No Cognitive needs: No Hearing needs: No Vision needs: No Questionnaire PHQ-9 Over the last 2 weeks, how often have you been bothered by any of the following problems? 1. Little interest or pleasure in doing things: not at all 2. Feeling down, depressed, or hopeless: not at all 3. Trouble falling or staying asleep, or sleeping too much: not at all 4. Feeling tired or having little energy: several days 5. Poor appetite or overeating: several days 6. Feeling bad about yourself - or that you are a failure or have let yourself or your family down: several days 7. Trouble concentrating on things, such as reading the newspaper or watching television: several days 8. Moving or speaking so slowly that other people could have noticed. Or the opposite - being so fidgety or restless that you have been moving around a lot more than usual: several days 9. Thoughts that you would be better off or of hurting yourself in some wa y: several days Total score: 6 Depression Screening Interpretation: Positive Depression Screening Follow-up: Existing condition, Community Mental Health Worker F/U and Follow-up Visit Requested Depression Screening Done: Yes 40359 - PHQ-9 Billing: Yes Source: Developed by Drs. Vaibhav Velasquez, Arin Barraza, Lex Fabian and colleagues, with an educational bryant from [employer]. Thrive Questionnaire Date Thrive assessed: 09/07/25 I am a: Patient What is your living situation today?: I have a place to live, but I am worried about losing it in the future Within the past 12 months, did the food you bought not last and you didn't have the money to get more?: Sometimes True Within the past 12 months, did you worry whether your food would run out before you got money to buy more?: Sometimes True Do you have trouble paying for medicines?: No Do you have trouble getting transportation to medical appointments?: No Do you have trouble paying your heating and electricity bill?: No Do you have trouble taking care of your child, family member or friend?: No Do you have trouble with day-to-day activities such as bathing, preparing meals, shopping, managing finances, etc.?: Yes Are you currently unemployed and looking for a job?: No Are you interested in more education?: Yes Currently or been in a relationship where the following occur: No concerns reported THRIVE Score: 3 AUDIT C Alcohol Use Questionnaire (AUDIT-C) 1. How often do you have a drink containing alcohol?: Never Total Score: 0 ZO-7 AMB Questionnaire ZO-7 Date ZO - 7 assessed: 04/09/23 Feeling nervous, anxious, or on edge: 1 = Several days Not being able to stop or control worryin = Several days Worrying too much about different things: 1 = Several days Trouble relaxin = Several days Being so restless that it is hard to sit still: 1 = Several days Becoming easily annoyed or irritable: 1 = Several days Feeling afraid as if something awful might happen: 1 = Several days Total ZO-7 score (0-4 normal; 5-9 mild; 10-14 moderate; 15-21 severe): 7 Source: Developed by Drs. Vaibhav Velasquez, Arin Barraza, Lex Fabian and colleagues, with an educational bryant from [employer]. ZO-7 Assessment Billing ZO-7 Assessment Tool: ZO-7 Assessment 99457 Physical exam (Primary Care) Vital Signs: Last Vital Signs Pulse 85 09/07/25 11:28 Resp 18 09/07/25 11:28 BP 134/68 09/07/25 11:28 Pulse Ox 99 09/07/25 11:28 Oxygen Delivery Method Room Air 09/07/25 11:28 BMI result Body Mass Index 45.4 BMI Assessment/Plan discussion: High BMI High, discussed plan: lifestyle, weight reduction, dietary and physical activity Tobacco/Smoking Status: Tobacco use Status Tobacco use date assessed 09/07/25 09/07/25 11:39 Patient Tobacco Use Status Current everyday Tobacco 09/07/25 11:39 e-Cigarette/Vaping Use Never Used 09/07/25 11:39 Are you ready to quit: Yes Tobacco cessation counseling provided: Yes Items discussed: QuitWorks and Other (start Chantix) Relapse Prevention: discussed the importance of a supportive environment, discussed negative mood or depression after quitting, weight gain after smoking is common and discussed dietary, exercise and/or lifestyle changes Number of minutes spent counselin CPT code: 88466 - 4-10 Minutes PHQ-9: PHQ-9 Score PHQ-9: Total score 6 09/07/25 12:08 Depression Screening Interpretation: Positive Depression Screening Follow-up: Existing condition, Community Mental Health Worker F/U and Follow-up Visit Requested Thrive Assessment: Date of Thrive Assessment Date Thrive assessed 09/07/25 09/07/25 11:39 Currently or been in a relationship where the following occur: No concerns reported Office Procedures Flu Questionnaire Does the patient have a severe egg allergy?: No Does the patient have severe life threatening allergies?: No Does the patient have a fever or illness today?: No Has the patient ever had Guillain-Downey Syndrome?: No Has the patient ever had any past reaction to a flu shot?: No Immunizations Fluarix 1210-9638 (PF) 45 mcg (15 mcg x 3)/0.5 mL IM syringe Performing Provider: Ricky Kern PA-C [facility] [facility] Administered by: Elisa Coronel LPN on 09/07/25 12:08 Dose Route Admin Location Dispensed Lot Number Expiration Date NDC Cashier Supervisor 0.5 mL IM Right Deltoid 0.5 mL [id number] 04/17/26 [id number] [employer] VIS Given Date VIS Provided VIS Publication Date 09/07/25 Single Vaccine 24 Eligibility Eligibility Date Funding Source Not [facility] Eligible 09/07/25 Private Coding Level of Care Code Est Pt Prev Care 40-64y(23598) Diagnoses Annual physical exam Z00.00 Other cardiomyopathy I42.8 Cardiomyopathy type: other CURLY (obstructive sleep apnea) G47.33 Polyarthralgia M25.50 Primary hypertension I10 Hypertension type: primary hypertension Tobacco dependence F17.200 Additional Codes ZO-7 Assessment Billing - ZO-7 Assessment Tool: ZO-7 Assessment 08642 ([id number]) PHQ-9 - 59661 - PHQ-9 Billing: Yes ([id number]) Vital Signs *Quality* - CPT code: 58235 - 4-10 Minutes ([id number]) Assessment & Plan Assessment & Plan (1) Annual physical exam: Code(s): Z00.00 - Encounter for general adult medical examination without abnormal findings Category: Medical Plan: as per HPI (2) Cardiomyopathy: Code(s): I42.9 - Cardiomyopathy, unspecified Category: Medical Qualifiers: Cardiomyopathy type: other Qualified Code(s): I42.8 - Other cardiomyopathies Plan: Recent echocardiogram showing stable results. Patient's blood pressure acceptable today in office. Unfortunately he does seem a bit hypervolemic thus will start his Lasix 20 mg on a daily basis. (3) CURLY (obstructive sleep apnea): Comment: VERY SEVERE OBSTRUCTIVE SLEEP APNEA, WITH NOCTURNAL HYPOXEMIA. HE IS VERY COMPLIANT AND HAPPY WITH THE USE OF CPAP. HE IS DEFINITELY BENEFITING AND REPORTS THAT SLEEP IS MUCH BETTER AND HE WAKES UP MORE REFRESHED Code(s): G47.33 - Obstructive sleep apnea (adult) (pediatric) Category: Medical Plan: The patient will continue using the CPAP machine, which has improved sleep quality. (4) Polyarthralgia: Code(s): M25.50 - Pain in unspecified joint Category: Medical Plan: Recent baseline rheumatology testing was negative. (5) HTN (hypertension): Code(s): I10 - Essential (primary) hypertension Category: Medical Qualifiers: Hypertension type: primary hypertension Qualified Code(s): I10 - Essential (primary) hypertension Plan: Patient's blood pressure acceptable today in office. Due to his continued upper and lower extremity swelling I Will change his Lasix 20 mg dose to daily dosing Goal blood pressures to be below 140/90 (6) Tobacco dependence: Comment: HE IS A HARD CORE SMOKER. HAD A GOOD DISCUSSION WITH HIM, HE NEEDS TO QUIT SMOKING, CURRENTLY USING NICOTINE BUCKLE LOZENGES . Code(s): F17.200 - Nicotine dependence, unspecified, uncomplicated Category: Medical Plan: Patient does understand he needs to quit smoking in his willing to start up Chantix to help him quit smoking completely. Orders: Orders Influenza [id number] Immunization Today Z23 - Encounter for immunization Medications: New amoxicillin 875 mg PO BID 14 tabs 0RF 7 days J01.10 - Acute frontal sinusitis, unspecified varenicline tartrate (Chantix Starting Month Box) PO PER PKG DIR 53 ea 0RF F17.200 - Nicotine dependence, unspecified, uncomplicated ipratropium bromide administer into each nostril 2 sprays intranasal BID 30 mL 0RF 4 weeks J01.10 - Acute frontal sinusitis, unspecified Changed From furosemide (Lasix) 20 mg PO Q OTHER DAY 30 days 15 tabs 1RF I10 - Essential (primary) hypertension To furosemide (Lasix) 20 mg PO QAM 30 tabs 3RF 30 days I10 - Essential (primary) hypertension Refilled baclofen 10 mg PO BID 60 tabs 3RF 30 days F14.10 - Cocaine abuse, uncomplicated
--- OUTSIDE RECORDS SUMMARY | 2025-09-07 16:23 | XMS_ITS | Encounter Summary ---
Author Organization [facility] Address [address] [place] [address] Care Team Providers Care Deflector Operator Name Role Phone Lili Arreaga MD Primary Care Provider Unav ailable Reason for Visit * Reason Onset Date Comments REFERRAL 02/24/2018 Encounter Details Date Type Department Care Team Description 02/24/2018 Telephone Orthopedics-[address] [address] Edu Hill PA-C REFERRAL Social History Tobacco Use Types Packs/Day Years Used Date Smoking Tobacco: Every Day Cigarettes 0.5 Smokeless Tobacco: Never Alcohol Use Standard Drinks/Week Comments No 0 (1 standard drink = 0.6 oz pur e alcohol) Sex Assigned at Date Recorded Not on file documented as of this encounter Miscellaneous Notes * Telephone Encounter - Arnie Anderson PA-C - 02/24/2018 9:32 AM EDT Patient rescheduled appointment for March 29, 2018. Appointment was scheduled on February 23, 2018. If patient no shows this visit he will need to see PCP for new referral if indicated. * Telephone Encounter - Izabel Flanagan - 02/24/2018 9:04 AM EDT Patient was referred to orthopedics re: Reason for referral: Left shoulder bursitis/tendonitis and right knee pain/DJD, eval for injections Patient no showed their appointment two times. Called couple times to reschedule with no response. Will remove patient from referral report.---FYI documented in this encounter Plan of Treatment Not on file documented as of this encounter Visit Diagnoses Not on filedocumented in this encounter Care Teams Deflector Operator Relationship Specialty Start Date End Date Lili Arreaga MD PCP - General Internal Medicine 01/05/17 documented as of this encounter
--- OUTSIDE RECORDS SUMMARY | 2025-09-07 16:23 | XMS_ITS | Encounter Summary ---
Author Organization [facility] Address [address] [place] [address] Care Team Providers Care Building Equipment Operator Name Role Phone Anne Aguayo MD Primary Care Provider Unavail able Chicho Peralta MD Primary Care Provider [phone] Lili Arreaga MD Primary Care Provider Unav ailable Encounter Details Date Type Department Care Team Description 10/28/2013 Release of Information Medical Records [address] [place] [id number] Abstract, Provider Social History Tobacco Use Types [...] on filedocumented in this encounter Care Teams Building Equipment Operator Relationship Specialty Start Date End Date Anne Aguayo MD PCP - General Internal Medicine 01/17/13 08/09/15 Chicho Peralta MD [address] [place] [address] PCP - General Internal Medicine 08/10/15 01/04/17 Lili Arreaga MD [address] [place] [address] PCP - General Internal Medicine 01/05/17 documented as of this encounter
--- OUTSIDE RECORDS SUMMARY | 2025-09-07 16:23 | XMS_ITS | Encounter Summary ---
Author Organization [facility] Address [address] [place] [address] Care Team Providers Care Computer Architect Name Role Phone Lili Arreaga MD Primary Care Provider Unav ailable Reason for Visit * Reason Onset Date Comments APPOINTMENT 02/05/2017 Encounter Details Date Type Department Care Team Description 02/05/2017 Telephone Radiology - [address] [address] Arnie Anderson PA-C APPOINTMENT Social History Tobacco [...] can remove order. * Telephone Encounter - Jauny De León - 02/05/2017 12:07 PM EDT [...] on filedocumented in this encounter Care Teams Computer Architect Relationship Specialty Start Date End Date Lili Arreaga MD PCP - General Internal Medicine 01/05/17 documented as of this encounter
--- OUTSIDE RECORDS SUMMARY | 2025-09-07 16:23 | XMS_ITS | Clinical Summary ---
[facility] Address [address] [place] [address] Care Team Providers Care Human Resource Management Instructor Name Role Phone Lili Arreaga MD Primary [...] has had colonoscopy 2010 Sickle cell trait ([facility]/HCC V24) 01/07/2017 DX:[facility] Tdap) 12/07/2024 12/07/2014 COVID-19 Vaccine (1 - 2024-2 6 season) 2025 Influenza Vaccine (#1) 2025 12/07/2014 [...] age to complete this topic Care Teams Human Resource Management Instructor Relationship Specialty Start Date End Date Lili Arreaga MD PCP - General Internal Medicine 01/05/17
--- OUTSIDE RECORDS SUMMARY | 2025-09-07 16:23 | XMS_ITS | Encounter Summary ---
Author Organization [facility] Address [address] [place] [address] Care Team Providers Care Window Shade Installer Name Role Phone Anne Aguayo MD Primary Care Provider Unavail able Chicho Peralta MD Primary Care Provider [phone] Lili Arreaga MD Primary Care Provider Unav ailable Encounter Details Date Type Department Care Team Description 12/07/2014 Business Doc Medical Records [address] [place] [address] Abstract, Provider Social History Tobacco Use Types [...] on filedocumented in this encounter Care Teams Window Shade Installer Relationship Specialty Start Date End Date Anne Aguayo MD PCP - General Internal Medicine 01/17/13 08/09/15 Chicho Peralta MD [address] [place] [id number] PCP - General Internal Medicine 08/10/15 01/04/17 Lili Arreaga MD [address] [place] [phone] PCP - General Internal Medicine 01/05/17 documented as of this encounter
== END 2025-09-07 12:07 | disposition home or self-care (01) ==
LOC: HO.HMCH 10:51
PROVIDERS: PCP Physician Assistant; Visit Provider Physician Assistant
DX: Z00.00 Encounter for general adult medical examination without abnormal findings (principal); I42.8 Other cardiomyopathies; G47.33 Obstructive sleep apnea (adult) (pediatric); M25.50 Pain in unspecified joint; I10 Essential (primary) hypertension; F17.200 Nicotine dependence, unspecified, uncomplicated; Z23 Encounter for immunization

== ENCOUNTER → 2025-09-07 10:51 | Outpatient (BNVA) | payer OTHER, SELFPAY | PROVIDERS: PCP Physician Assistant; Visit Provider Physician Assistant | DX: Z00.00 Encounter for general adult medical examination without abnormal findings (principal); Z23 Encounter for immunization; I42.8 Other cardiomyopathies; I10 Essential (primary) hypertension; G47.33 Obstructive sleep apnea (adult) (pediatric); M25.50 Pain in unspecified joint; F17.210 Nicotine dependence, cigarettes, uncomplicated; Z71.6 Tobacco abuse counseling | CPT/HCPCS: 90471; 90656; 96127; 99396 ==